=== PATIENT | female | born 1945 | race Caucasian/White ===

== ENCOUNTER 2018-01-21 18:02 | Inpatient (IN) ==
[2018-01-21 18:48] LABS: Microscopic, Urine URINE MICROSCOPIC (MICROSCOPIC)
[2018-01-21 18:53] LABS: Basophils % 0.1 % (0.1-2.0); Eosinophils # 0.1 K/mm3 (0.0-0.4); Eosinophils % 0.3 % (0.1-12.0); Hematocrit 38.9 % (37.0-47.0); Hemoglobin 12.9 g/dL (12.2-16.2); Lymphocytes # 0.7 K/mm3 (0.7-4.5); Lymphocytes % 3.8 % (10-50); Mean Corpuscular HGB Conc 33.1 g/dL (31.8-35.4); Mean Corpuscular Hemoglobin 28.9 pg (27.0-31.2); Mean Corpuscular Volume 87.5 fl (81-99); Mean Platelet Volume 8.2 fl (7.4-10.4); Monocytes # 0.8 K/mm3 (0.1-1.0); Neutrophils # 17.1 K/mm3 (1.8-7.8); Neutrophils % 91.8 % (37.0-80.0); Platelet Count 232 K/mm3 (142-424); Red Blood Count 4.45 M/mm3 (4.20-5.40); Red Cell Distribution Width 13.4 % (11.5-17.5); White Blood Count 18.7 K/mm3 (4.8-10.8)
--- NOTE | 2018-01-21 18:58 | Emergency Department Note ---
ED Disposition Clinical Impression: Weakness, Hypokalemia, Dehydration, Acute UTI (urinary tract infection) Disposition: Admitted as Observation Condition on Discharge: Fair - Critical Care Critical Care Time: No Attestation: On 01/21/18, the high probability of a clinically significant, sudden or life threatening deterioration of the following system(s) required my full and direct attention, intervention and personal management. The time I documented below is in addition to time spent performing reported procedures but includes the following listed in this critical care notation. Medical Decision Making - Medical Records Medical records reviewed: Yes: I reviewed the patient's medical records. MR Comment: Discussed case with hospitalist claim professional (Dr. Tellez). Patient admitted to her care for farther management and monitoring. Patient remained stable during her ED care. - Adalberto Inquiry Pt receiving controlled substance: No Adalberto was queried for this patient: No Vital Signs: 01/21/18 18:04 Temperature 98.1 F Temperature Source Oral Pulse Rate [Right Brachial] 83 Respiratory Rate 20 Blood Pressure [Left Arm] 113/66 Blood Pressure Mean [Left Arm] 81 Blood Pressure Source [Left Arm] Automatic Cuff Blood Pressure Position [Left Arm] Sitting 02 Sat by Pulse Oximetry 92 L Oxygen Delivery Method Room Air - Lab Data Lab results reviewed: Yes: I reviewed the patient's lab results. Lab Results 01/21/18 17:45: Urine Color Yellow, Urine Appearance Cloudy, Urine pH 6.0, Ur Specific [place] 1.010, Urine Protein 2+, Urine Glucose (UA) Negative, Urine Ketones 1+, Urine Blood 3+, Urine Nitrate Negative, Urine Bilirubin Negative, Urine Urobilinogen 0.2, Ur Leukocyte Esterase 2+ A, Urine RBC 3-5, Urine WBC 20- 50, Ur Squamous Epith Cells None, Urine Bacteria 1+ 01/21/18 17:45: WBC 18.7 H, RBC 4.45, Hgb 12.9, Hct 38.9, MCV 87.5, MCH 28.9, MCHC 33.1, RDW 13.4, Plt Count 232, MPV 8.2, Neut % (Auto) 91.8 H, Lymph % (Auto) 3.8 L, [place] % (Auto) 4.0, Eos % (Auto) 0.3, Baso % (Auto) 0.1, Neut # (Auto) 17.1 H, Lymph # (Auto) 0.7, [place] # (Auto) 0.8, Eos # (Auto) 0.1, Baso # (Auto) 0.0, Total Counted 100, Neutrophils % (Manual) 92 H, Lymphocytes % (Manual) 6 L, Monocytes % (Manual) 2, Platelet Estimate Normal, RBC Morphology Normal 01/21/18 17:45: Sodium 124 L, Potassium 2.5 L*, Chloride 85 L, Carbon Dioxide 28, Anion Gap 13.5, BUN 29 H, Creatinine 1.32 H, Estimated Creat Clear 44, Estimated GFR 40 L, Est GFR ( Amer) 48 L, Glucose 143 H, Calcium 8.8, Total Bilirubin 0.6, AST 49 H, ALT 36, Alkaline Phosphatase 86, Total Protein 7.6, Albumin 2.6 L, Globulin 5.0 H, Albumin/Globulin Ratio 0.5 L 01/21/18 19:05: Magnesium 2.0 01/21/18 19:07: Lactate 1.0 Result diagrams: 01/21/18 17:45 01/21/18 17:45 Orders (Tests/Meds): ED MEDICATIONS Generic Name Dose Route Start Last Admin Trade Name Freq PRN Reason Stop Dose Admin Ceftriaxone Sodium 2 gm/ 100 mls @ 200 mls/hr 01/21/18 19:30 01/21/18 19:46 Sodium Chloride IV 02/04/18 19:29 200 mls/hr Q24H TIMOTHY Administration Protocol Potassium Chloride/Water 100 mls @ 50 mls/hr 01/21/18 19:45 Potassium Chloride 20meq/100ml Ivpb IV 01/21/18 23:44 Q2H TIMOTYH Sodium Chloride 1,000 mls @ 999 mls/hr 01/21/18 20:00 01/21/18 19:46 Sod Chlor 0.9% 1000ml Bag IV 01/21/18 21:00 999 mls/hr .Q1H1M TIMOTHY Administration Sodium Chloride 1,000 mls @ 125 mls/hr 01/21/18 20:00 Sod Chlor 0.9% 1000ml Bag IV 02/20/18 19:59 .Q8H TIMOTHY Discontinued Medications Generic Name Dose Route Start Last Admin Trade Name Freq PRN Reason Stop Dose Admin Potassium Chloride 40 meq 01/21/18 19:13 01/21/18 19:31 Klor-Con 20meq Tablet PO 01/21/18 19:14 40 meq ONCE ONE Administration ORDERS Category Date Time Status Urinalysis and Microscopic Stat Lab 01/21/18 17:45 Ordered Blood Culture Stat Micro 01/21/18 19:50 Received Urine Culture Stat Micro 01/21/18 17:45 Received EKG Request [ECG Request by /Tabitha] Stat Y 01/21/18 19:11 Ordered - ECG Data Tracing #1 I reviewed this ECG and interpreted as documented below: Normal Sinus Rhythm: Yes General Adult HPI - General Chief complaint: Altered Mental Status Stated complaint: Confused, Abd pain Time Seen by Provider: 01/21/18 18:05 Mode of Arrival: Ambulatory Source of Information: Patient, Relative Limitations: No Limitations Description of Symptoms (Recalled from ER Triage Doc. by RN): c/o confusion. Has had uti x 2 weeks and didnt go to dr until and didnt get meds filled til thu and has only taken 2 doses - History of Present Illness HPI narrative: Patinent with recent diagnosis of UTI, started on antibiotic 2 days ago by her PCP, brought to the ED by her daughter of confusion at home that lasted for about 15 minutes and generalized weakness. Symptoms resolved by the time of ED presentation. Denies fever, chills, chest pain, sob, abdominal pain. Denies any other acute complains at this time. Onset (ago): hour(s) Relieving factors: none Exacerbating factors: none Associated symptoms: denies other symptoms Treatments prior to arrival: none - Related Data Home Medications Medication Instructions Recorded Confirmed Atenolol/Chlorthalidone 1 each PO DAILY 01/21/18 01/21/18 [Atenolol-Chlorthalidone 50-25] Budesonide [Budesonide EC] 3 mg PO DAILY 01/21/18 01/21/18 Calcium Carb, Citrate/Vit D3 1 each PO DAILY 01/21/18 01/21/18 [Citracal + D ER Tablet] Cholecalciferol (Vitamin D3) 1,000 unit PO BID 01/21/18 01/21/18 [Vitamin D3 1,000 Unit Cap] Nitrofurantoin Monohyd/M-Cryst 100 mg PO BID 01/21/18 01/21/18 [Nitrofurantoin [place]-Mcr 100 mg] Potassium Chloride [Klor-con 20 20 meq PO BID 01/21/18 01/21/18 mEq tablet] Pravastatin Sodium 80 mg PO DAILY 01/21/18 01/21/18 Allergies Allergy/AdvReac Type Severity Reaction Status Date / Time No Known Allergies Allergy Verified 01/21/18 18:13 [facility] History I have reviewed the patient's past medical history: Yes Medical History: Denies:: Cancer, Diabetes Mellitus Type 1, Diabetes Mellitus Type 2, MRSA Amputation: No - Social History Smoking Status: Current every day smoker Tobacco Type: cigarettes Alcohol Intake: never - Psychiatric History Expresses thoughts of harming self/others: None Suicide Plan Description: No Plan ROS Obtained: Yes All systems reviewed & no additional complaints Physical Exam - General General appearance: alert, in no apparent distress - Head Head exam: atraumatic, normocephalic, normal inspection - Eye Eye exam: Present: normal appearance, PERRL, EOMI - ENT ENT exam: Present: normal exam, normal oropharynx, mucous membranes moist, TM's normal bilaterally, normal external ear exam - Neck Neck exam: Present: normal inspection, full ROM, trachea midline. Absent: meningismus, lymphadenopathy - Chest Chest inspection: Present: normal inspection, symmetric chest wall rise. Absent: tenderness - Respiratory Respiratory exam: Present: normal lung sounds bilaterally. Absent: respiratory distress - Cardiovascular Cardiovascular exam: Present: regular rate, normal rhythm. Absent: JVD - Abdominal Exam Abdominal exam: Present: soft, normal bowel sounds. Absent: distention, tenderness, guarding - Extremities Exam Extremities exam: Present: normal inspection, full ROM, normal capillary refill. Absent: calf tenderness - Back Exam Back exam: Present: normal inspection. Absent: tenderness - Neurological Exam Neurological exam: Present: alert, oriented X3 - Psychiatric Psychiatric exam: Present: normal affect, normal mood - Skin Skin exam: Present: warm, dry, intact, normal color - Lymphatic Lymphatic Findings: no adenopathy
[2018-01-21 19:00] LABS: Appearance,Urine CLOUDY (Clear); Bilirubin,Urine Negative (Negative); Blood, Urine 3+ (Negative); Color,Urine YELLOW (Yellow); Glucose,Urine (UA) Negative (Negative); Ketones,Urine 1+ (Negative); Leukocyte Esterase,Urine 2+ (Negative); Protein,Urine 2+ (Negative); Urobilinogen,Urine 0.2 EU/dl (0.2)
[2018-01-21 19:03] LABS: Albumin Level 2.6 gm/dL (3.4-5.0); Albumin/Globulin Ratio 0.5 (1.1-1.8); Anion Gap 13.5 mEq/L (5-15); Bilirubin,Total 0.6 mg/dL (0.2-1.0); Calcium 8.8 mg/dL (8.5-10.1); Total Protein,Serum 7.6 gm/dL (6.4-8.2)
[2018-01-21 19:07] LABS: Potassium 2.5 mmoL/L (3.5-5.1)
[2018-01-21 19:26] LABS: Bacteria,Urine 1+ /lpf; WBC,Urine 20-50 #/hpf (0-3)
[2018-01-21 19:36] LABS: Lymphocytes % 6 % (10-50); Monocytes % 2 % (2-9); Neutrophils % 92 % (42-76); Total Cells Counted 100
[2018-01-21 19:37] LABS: RBC Morphology Normal
--- NOTE | 2018-01-22 07:34 | Pharmacy Consult Notes ---
[facility] Pharmacy VTE Monitoring - Patient Demographics Admission date: 01/21/18 Report Date: 01/22/18 Time: 07:33 Allergies/Adverse Reactions: Patient Allergies No Known Allergies Allergy (Verified 01/21/18 18:13) Height: 1.57 m Weight: 71.894 kg Patient Problems: Current Active Problems Acute UTI (urinary tract infection) (Acute) Weakness (Acute) Hypokalemia (Acute) Dehydration (Acute) - VTE Risk Labs: VTE Related Lab Results Hgb 12.9 g/dL (12.2-16.2) 01/21/18 17:45 Hct 38.9 % (37.0-47.0) 01/21/18 17:45 Plt Count 232 K/mm3 (142-424) 01/21/18 17:45 BUN 29 mg/dL (7-18) H 01/21/18 17:45 Creatinine 1.32 mg/dL (0.55-1.02) H 01/21/18 17:45 Estimated Creat Clear 44 mL/min (50-200) 01/21/18 17:45 Was VTE Risk Assessment Performed: Yes VTE Score: 3 VTE Risk Level: Low Risk Clinical Trial Participant: No - Prophylaxis VTE Prophylaxis Ordered?: Yes Types of VTE Prophylaxis: TEDS Knee High Location of Applied Device: Refused
--- NOTE | 2018-01-22 08:54 | History & Physical Report ---
*Admission Date: 01/21/18 <Monae Crowe 01/22/18 09:00> *Chief complaint: Weakness, Confusion, <Monae Crowe 01/22/18 09:00> *History of present illness: Ms. Londono is a 72-year-old female who had just recently seen her PCP, Dr. Delgado, for urinary tract infection. She was placed on antibiotics yesterday and later on in the day began getting confused and extremely weak. She states her family told her she needed to go to the emergency room and therefore brought her to the ER. Her white blood cell count was elevated, her potassium was low, and her renal functions were increased. She was admitted and started on IV abx. At this time she is feeling better. She states her confusion has improved. She is having some diarrhea but she has a history of Crohn's and has not had her medication since yesterday. <Monae Crowe 01/22/18 09:00> [facility] History Medical History: Reports:: Hyperlipidemia, Hypertension Denies:: Cancer, Diabetes Mellitus Type 1, Diabetes Mellitus Type 2, MRSA <Monae Crowe 01/22/18 09:00> Comment: Crohn's Disease <Monae Crowe 01/22/18 09:00> Other Surgeries: Yes: Hysterectomy-Total <Monae Crowe 01/22/18 09:00> Amputation: No <Monae Crowe 01/22/18 09:00> - *Social History Educational Level: Completed High School <Monae Crowe 01/22/18 09:00> Smoking Status: Current every day smoker <Monae Crowe 01/22/18 09:00> Tobacco Type: cigarettes <Monae Crowe 01/22/18 09:00> # Packs/Day (cigarettes): 1 <Monae Crowe 01/22/18 09:00> Alcohol Intake: never <Monae Crowe 01/22/18 09:00> Occupational Status: retired <Monae Crowe 01/22/18 09:00> Housing: other <Monae Crowe 01/22/18 09:00> Household Members: spouse <Monae Crowe 01/22/18 09:00> - Psychiatric History Expresses thoughts of harming self/others: None <Monae Crowe - 01/22/18 09:00> Suicide Plan Description: No Plan <Monae Crowe 01/22/18 09:00> *Family Hx:: Cancer, Diabetes, Heart Attack, Hyperlipidemia, Hypertension <Monae Crowe 01/22/18 09:00> Review of Systems - Constitutional Reports fever(s), Reports malaise, Reports weakness <Monae Crowe 01/22/18 09:00> - Eyes Denies blurry vision, Denies double vision <Monae Crowe 01/22/18 09:00> - ENT Reports nasal congestion, Denies sore throat <Monae Crowe 01/22/18 09:00> - *Cardiovascular Denies chest pain, Denies rapid, pounding, or irregular heartbeat <Monae Crowe 01/22/18 09:00> - *Respiratory Denies cough, Denies shortness of breath <Monae Crowe 01/22/18 09:00> - *Gastrointestinal Reports abdominal pain, Reports loose stools, Denies nausea, Denies vomiting <Monae Crowe 01/22/18 09:00> - *Genitourinary Reports painful urination, Reports urinary urgency <Monae Crowe 01/22/18 09:00> - *Musculoskeletal Denies joint pain, Denies body aches <Monae Crowe 01/22/18 09:00> - *Neurologic Reports weakness, Denies headache(s), Denies dizziness <Monae Crowe 01/22/18 09:00> Meds Home Medications Medication Instructions Recorded Confirmed Type Atenolol/Chlorthalidone 1 each PO DAILY 01/21/18 01/22/18 History [Atenolol-Chlorthalidone 50-25] Budesonide [Budesonide EC] 3 mg PO DAILY 01/21/18 01/22/18 History Calcium Carb, Citrate/Vit D3 1 each PO DAILY 01/21/18 01/22/18 History [Citracal + D ER Tablet] Cholecalciferol (Vitamin D3) 1,000 unit PO BID 01/21/18 01/21/18 History [Vitamin D3 1,000 Unit Cap] Nitrofurantoin Monohyd/M-Cryst 100 mg PO BID 01/21/18 01/21/18 History [Nitrofurantoin [place]-Mcr 100 mg] Pravastatin Sodium 80 mg PO DAILY 01/21/18 01/21/18 History Potassium Chloride [Klor-Con 10mEq 20 meq PO DAILY 01/22/18 01/22/18 History tab] <Mirna Tellez - 01/22/18 11:13> Allergies Allergy/AdvReac Type Severity Reaction Status Date / Time No Known Allergies Allergy Verified 01/21/18 18:13 <Mirna Tellez - 01/22/18 11:13> Exam Vital signs and Labs for Last 24 Hours: Temp Pulse Resp BP Pulse Ox 100.6 F H 76 17 124/53 L 92 L 01/22/18 07:57 01/22/18 07:57 01/22/18 07:57 01/22/18 07:57 01/22/18 07:57 Laboratory Results - last 24 hr 01/21/18 17:45: Urine Color Yellow, Urine Appearance Cloudy, Urine pH 6.0, Ur Specific [place] 1.010, Urine Protein 2+, Urine Glucose (UA) Negative, Urine Ketones 1+, Urine Blood 3+, Urine Nitrate Negative, Urine Bilirubin Negative, Urine Urobilinogen 0.2, Ur Leukocyte Esterase 2+ A, Urine RBC 3-5, Urine WBC 20- 50, Ur Squamous Epith Cells None, Urine Bacteria 1+ 01/21/18 17:45: WBC 18.7 H, RBC 4.45, Hgb 12.9, Hct 38.9, MCV 87.5, MCH 28.9, MCHC 33.1, RDW 13.4, Plt Count 232, MPV 8.2, Neut % (Auto) 91.8 H, Lymph % (Auto) 3.8 L, [place] % (Auto) 4.0, Eos % (Auto) 0.3, Baso % (Auto) 0.1, Neut # (Auto) 17.1 H, Lymph # (Auto) 0.7, [place] # (Auto) 0.8, Eos # (Auto) 0.1, Baso # (Auto) 0.0, Total Counted 100, Neutrophils % (Manual) 92 H, Lymphocytes % (Manual) 6 L, Monocytes % (Manual) 2, Platelet Estimate Normal, RBC Morphology Normal 01/21/18 17:45: Sodium 124 L, Potassium 2.5 L*, Chloride 85 L, Carbon Dioxide 28, Anion Gap 13.5, BUN 29 H, Creatinine 1.32 H, Estimated Creat Clear 44, Estimated GFR 40 L, Est GFR ( Amer) 48 L, Glucose 143 H, Calcium 8.8, Total Bilirubin 0.6, AST 49 H, ALT 36, Alkaline Phosphatase 86, Total Protein 7.6, Albumin 2.6 L, Globulin 5.0 H, Albumin/Globulin Ratio 0.5 L 01/21/18 19:05: Magnesium 2.0 01/21/18 19:07: Lactate 1.0 <Sound,Mirna - 01/22/18 11:13> Temp Pulse Resp BP Pulse Ox 100.6 F H 76 17 124/53 L 92 L 01/22/18 07:57 01/22/18 07:57 01/22/18 07:57 01/22/18 07:57 01/22/18 07:57 Laboratory Results - last 24 hr 01/21/18 17:45: Urine Color Yellow, Urine Appearance Cloudy, Urine pH 6.0, Ur Specific [place] 1.010, Urine Protein 2+, Urine Glucose (UA) Negative, Urine Ketones 1+, Urine Blood 3+, Urine Nitrate Negative, Urine Bilirubin Negative, Urine Urobilinogen 0.2, Ur Leukocyte Esterase 2+ A, Urine RBC 3-5, Urine WBC 20- 50, Ur Squamous Epith Cells None, Urine Bacteria 1+ 01/21/18 17:45: WBC 18.7 H, RBC 4.45, Hgb 12.9, Hct 38.9, MCV 87.5, MCH 28.9, MCHC 33.1, RDW 13.4, Plt Count 232, MPV 8.2, Neut % (Auto) 91.8 H, Lymph % (Auto) 3.8 L, [place] % (Auto) 4.0, Eos % (Auto) 0.3, Baso % (Auto) 0.1, Neut # (Auto) 17.1 H, Lymph # (Auto) 0.7, [place] # (Auto) 0.8, Eos # (Auto) 0.1, Baso # (Auto) 0.0, Total Counted 100, Neutrophils % (Manual) 92 H, Lymphocytes % (Manual) 6 L, Monocytes % (Manual) 2, Platelet Estimate Normal, RBC Morphology Normal 01/21/18 17:45: Sodium 124 L, Potassium 2.5 L*, Chloride 85 L, Carbon Dioxide 28, Anion Gap 13.5, BUN 29 H, Creatinine 1.32 H, Estimated Creat Clear 44, Estimated GFR 40 L, Est GFR ( Amer) 48 L, Glucose 143 H, Calcium 8.8, Total Bilirubin 0.6, AST 49 H, ALT 36, Alkaline Phosphatase 86, Total Protein 7.6, Albumin 2.6 L, Globulin 5.0 H, Albumin/Globulin Ratio 0.5 L 01/21/18 19:05: Magnesium 2.0 01/21/18 19:07: Lactate 1.0 <Monae Crowe - 01/22/18 09:00> I & O for Last 24 hours: Intake & Output 01/19/18 01/20/18 01/21/18 01/22/18 11:59 11:59 11:59 11:59 Intake Total 1650 / 1650 Output Total 720 / 720 Balance 930 / 930 Weight 158 lb 7.986 oz <RosalindaMirna - 01/22/18 11:13> Intake & Output 01/19/18 01/20/18 01/21/18 01/22/18 11:59 11:59 11:59 11:59 Intake Total 1650 / 1650 Output Total 720 / 720 Balance 930 / 930 Weight 158 lb 7.986 oz <Monae Crowe - 01/22/18 09:00> Microbiology Reports for the Last 24 Hours: Microbiology 01/21/18 17:45 Urine,Clean Catch Urine Culture - Preliminary Gram Negative Rods <RosalindaMirna - 01/22/18 11:13> Microbiology 01/21/18 17:45 Urine,Clean Catch Urine Culture - Preliminary Gram Negative Rods <Monae Crowe - 01/22/18 09:00> - Constitutional no acute distress <Monae Crowe - 01/22/18 09:00> - *Routine HEENT Exam Head: Present: normocephalic <Monae Crowe - 01/22/18 09:00> Eye: Present: EOMI, PERRL <Monae Crowe - 01/22/18 09:00> ENT: Present: mucous membranes dry <[facility] 01/22/18 09:00> - *Routine Neck Exam Present: supple. Absent: lymphadenopathy <[facility] 01/22/18 09:00> - *Routine Respiratory Exam Present: CTA bilaterally <[facility] 01/22/18 09:00> - *Routine Cardiovascular Exam Present: RRR <[facility] 01/22/18 09:00> - *Routine Abdominal Exam Present: soft, normoactive bowel sounds, tenderness (diffuse) <[facility] 01/22/18 09:00> - *Routine Extremities Exam Absent: cyanosis, clubbing, edema <[facility] 01/22/18 09:00> - *Routine Skin Exam Present: warm. Absent: rash <[facility] 01/22/18 09:00> - *Routine Neurological Exam Present: alert, oriented X3 <[facility] 01/22/18 09:00> Assessment and Plan (1) Acute UTI (urinary tract infection) Current visit: Yes Status: Acute Category: Medical Code(s): N39.0 - Urinary tract infection, site not specified (2) Weakness Current visit: Yes Status: Acute Category: Medical Code(s): R53.1 - Weakness (3) Hypokalemia Current visit: Yes Status: Acute Category: Medical Code(s): E87.6 - Hypokalemia (4) Dehydration Current visit: Yes Status: Acute Category: Medical Code(s): E86.0 - Dehydration (5) Crohn's disease Current visit: Yes Status: Chronic Category: Medical Code(s): K50.90 - Crohn's disease, unspecified, without complications (6) Hypertension Current visit: Yes Status: Chronic Category: Medical Code(s): I10 - Essential (primary) hypertension (7) Hyperlipidemia Current visit: Yes Status: Chronic Category: Medical Code(s): E78.5 - Hyperlipidemia, unspecified [facility] 01/22/[facility] 08:51> (1) Acute UTI (urinary tract infection) Current visit: Yes Status: Acute Category: Medical Code(s): N39.0 - Urinary tract infection, site not specified (2) Weakness Current visit: Yes Status: Acute Category: Medical Code(s): R53.1 - Weakness (3) Hypokalemia Current visit: Yes Status: Acute Category: Medical Code(s): E87.6 - Hypokalemia (4) Dehydration Current visit: Yes Status: Acute Category: Medical Code(s): E86.0 - Dehydration (5) Crohn's disease Current visit: Yes Status: Chronic Category: Medical Code(s): K50.90 - Crohn's disease, unspecified, without complications (6) Hypertension Current visit: Yes Status: Chronic Category: Medical Code(s): I10 - Essential (primary) hypertension (7) Hyperlipidemia Current visit: Yes Status: Chronic Category: Medical Code(s): E78.5 - Hyperlipidemia, unspecified <Mirna eTllez - 01/22/18 11:13> - Assessment and plan all Dx Assessment and Plan for all problems:: continue IV abx and await urine culture. refrain from macrobid for now. <Mirna Tellez - 01/22/18 11:13> Patient has been started on IV antibiotics, IV fluids, and potassium. Will repeat labs this morning. Will await urine culture results. <Monae Crowe - 01/22/18 09:00>
[2018-01-22 11:21] LABS: Basophils % 0.1 % (0.1-2.0); Mean Corpuscular Volume 88.6 fl (81-99); Monocytes # 0.6 K/mm3 (0.1-1.0); Monocytes % 4.4 % (1.7-9.3); Red Cell Distribution Width 13.6 % (11.5-17.5)
[2018-01-22 11:32] LABS: Eosinophils % 0.1 % (0.1-12.0); Hematocrit 34.7 % (37.0-47.0); Lymphocytes # 1.4 K/mm3 (0.7-4.5); Lymphocytes % 9.8 % (10-50); Mean Corpuscular HGB Conc 32.6 g/dL (31.8-35.4); Mean Corpuscular Hemoglobin 28.9 pg (27.0-31.2); Mean Platelet Volume 8.4 fl (7.4-10.4); Neutrophils # 12.3 K/mm3 (1.8-7.8); Neutrophils % 85.5 % (37.0-80.0); Platelet Count 223 K/mm3 (142-424); Red Blood Count 3.91 M/mm3 (4.20-5.40); White Blood Count 14.4 K/mm3 (4.8-10.8)
[2018-01-22 11:36] LABS: Hemoglobin 11.3 g/dL (12.2-16.2)
[2018-01-22 14:04] LABS: Lymphocytes % 11 % (10-50); Monocytes % 2 % (2-9); Neutrophils % 87 % (42-76); Total Cells Counted 100
[2018-01-22 14:05] LABS: RBC Morphology Normal
[2018-01-23 06:46] LABS: Basophils % 0.1 % (0.1-2.0); Eosinophils # 0.1 K/mm3 (0.0-0.4); Eosinophils % 0.4 % (0.1-12.0); Hematocrit 34.1 % (37.0-47.0); Lymphocytes # 1.4 K/mm3 (0.7-4.5); Mean Corpuscular HGB Conc 32.2 g/dL (31.8-35.4); Mean Corpuscular Hemoglobin 28.3 pg (27.0-31.2); Mean Corpuscular Volume 87.9 fl (81-99); Mean Platelet Volume 8.9 fl (7.4-10.4); Monocytes # 0.6 K/mm3 (0.1-1.0); Monocytes % 5.3 % (1.7-9.3); Neutrophils # 9.6 K/mm3 (1.8-7.8); Neutrophils % 82.1 % (37.0-80.0); Platelet Count 216 K/mm3 (142-424); Red Blood Count 3.88 M/mm3 (4.20-5.40); Red Cell Distribution Width 13.7 % (11.5-17.5); White Blood Count 11.6 K/mm3 (4.8-10.8)
[2018-01-23 06:58] LABS: Albumin Level 1.9 gm/dL (3.4-5.0); Albumin/Globulin Ratio 0.5 (1.1-1.8); Anion Gap 9.3 mEq/L (5-15); Bilirubin,Total 0.3 mg/dL (0.2-1.0); Calcium 8.2 mg/dL (8.5-10.1); Globulin 4.1 gm/dl (1.3-3.2); Potassium 3.3 mmoL/L (3.5-5.1)
--- NOTE | 2018-01-23 08:27 | Progress Note ---
Internal Medicine - PN: Subj *Date: 01/23/18 *Time: 08:27 Exam Vital signs and Labs for Last 24 Hours: Temp Pulse Resp BP Pulse Ox 98.3 F 65 16 131/81 92 L 01/23/18 07:29 01/23/18 07:29 01/23/18 07:29 01/23/18 07:29 01/23/18 07:29 Laboratory Results - last 24 hr 01/22/18 11:00: WBC 14.4 H, RBC 3.91 L, Hgb 11.3 L D, Hct 34.7 L, MCV 88.6, MCH 28.9, MCHC 32.6, RDW 13.6, Plt Count 223, MPV 8.4, Neut % (Auto) 85.5 H, Lymph % (Auto) 9.8 L, [place] % (Auto) 4.4, Eos % (Auto) 0.1, Baso % (Auto) 0.1, Neut # (Auto) 12.3 H, Lymph # (Auto) 1.4, [place] # (Auto) 0.6, Eos # (Auto) 0.0, Baso # (Auto) 0.0, Total Counted 100, Neutrophils % (Manual) 87 H, Lymphocytes % (Manual) 11, Monocytes % (Manual) 2, Platelet Estimate Normal, RBC Morphology Normal 01/23/18 06:36: WBC 11.6 H, RBC 3.88 L, Hgb 11.0 L, Hct 34.1 L, MCV 87.9, MCH 28.3, MCHC 32.2, RDW 13.7, Plt Count 216, MPV 8.9, Neut % (Auto) 82.1 H, Lymph % (Auto) 12.0, [place] % (Auto) 5.3, Eos % (Auto) 0.4, Baso % (Auto) 0.1, Neut # (Auto) 9.6 H, Lymph # (Auto) 1.4, [place] # (Auto) 0.6, Eos # (Auto) 0.1, Baso # (Auto) 0.0 01/23/18 06:36: Sodium 134 L, Potassium 3.3 L D, Chloride 99, Carbon Dioxide 29, Anion Gap 9.3, BUN 16 D, Creatinine 0.92 D, Estimated Creat Clear 58, Estimated GFR 60, Est GFR ( Amer) 73 D, Glucose 101, Calcium 8.2 L, Total Bilirubin 0.3, AST 51 H, ALT 35, Alkaline Phosphatase 66, Total Protein 6.0 L, Albumin 1.9 L, Globulin 4.1 H, Albumin/Globulin Ratio 0.5 L I & O for Last 24 hours: Intake & Output 01/20/18 01/21/18 01/22/18 01/23/18 11:59 11:59 11:59 11:59 Intake Total 1650 / 1650 3055 / 3055 Output Total 720 / 720 650 / 650 Balance 930 / 930 2405 / 2405 Weight 158 lb 7.986 oz Microbiology Reports for the Last 24 Hours: Microbiology 01/21/18 19:50 Blood Blood Culture - Preliminary Gram Negative Rods 01/21/18 17:45 Urine,Clean Catch Urine Culture - Final Escherichia coli Assessment and Plan (1) Acute UTI (urinary tract infection) Current visit: Yes Status: Acute Category: Medical Code(s): N39.0 - Urinary tract infection, site not specified (2) Weakness Current visit: Yes Status: Acute Category: Medical Code(s): R53.1 - Weakness (3) Hypokalemia Current visit: Yes Status: Acute Category: Medical Code(s): E87.6 - Hypokalemia (4) Dehydration Current visit: Yes Status: Acute Category: Medical Code(s): E86.0 - Dehydration (5) Crohn's disease Current visit: Yes Status: Chronic Category: Medical Code(s): K50.90 - Crohn's disease, unspecified, without complications (6) Hypertension Current visit: Yes Status: Chronic Category: Medical Code(s): I10 - Essential (primary) hypertension (7) Hyperlipidemia Current visit: Yes Status: Chronic Category: Medical Code(s): E78.5 - Hyperlipidemia, unspecified
--- NOTE | 2018-01-23 08:51 | Progress Note ---
Internal Medicine - PN: Subj *Date: 01/23/18 *Time: 08:48 Interval history: Feeling better. Rested well last night. No c/o abdominal pain or dysuria. Exam Vital signs and Labs for Last 24 Hours: Temp Pulse Resp BP Pulse Ox 98.3 F 65 16 131/81 92 L 01/23/18 07:29 01/23/18 07:29 01/23/18 07:29 01/23/18 07:29 01/23/18 07:29 Laboratory Results - last 24 hr 01/22/18 11:00: WBC 14.4 H, RBC 3.91 L, Hgb 11.3 L D, Hct 34.7 L, MCV 88.6, MCH 28.9, MCHC 32.6, RDW 13.6, Plt Count 223, MPV 8.4, Neut % (Auto) 85.5 H, Lymph % (Auto) 9.8 L, [place] % (Auto) 4.4, Eos % (Auto) 0.1, Baso % (Auto) 0.1, Neut # (Auto) 12.3 H, Lymph # (Auto) 1.4, [place] # (Auto) 0.6, Eos # (Auto) 0.0, Baso # (Auto) 0.0, Total Counted 100, Neutrophils % (Manual) 87 H, Lymphocytes % (Manual) 11, Monocytes % (Manual) 2, Platelet Estimate Normal, RBC Morphology Normal 01/23/18 06:36: WBC 11.6 H, RBC 3.88 L, Hgb 11.0 L, Hct 34.1 L, MCV 87.9, MCH 28.3, MCHC 32.2, RDW 13.7, Plt Count 216, MPV 8.9, Neut % (Auto) 82.1 H, Lymph % (Auto) 12.0, [place] % (Auto) 5.3, Eos % (Auto) 0.4, Baso % (Auto) 0.1, Neut # (Auto) 9.6 H, Lymph # (Auto) 1.4, [place] # (Auto) 0.6, Eos # (Auto) 0.1, Baso # (Auto) 0.0 01/23/18 06:36: Sodium 134 L, Potassium 3.3 L D, Chloride 99, Carbon Dioxide 29, Anion Gap 9.3, BUN 16 D, Creatinine 0.92 D, Estimated Creat Clear 58, Estimated GFR 60, Est GFR ( Amer) 73 D, Glucose 101, Calcium 8.2 L, Total Bilirubin 0.3, AST 51 H, ALT 35, Alkaline Phosphatase 66, Total Protein 6.0 L, Albumin 1.9 L, Globulin 4.1 H, Albumin/Globulin Ratio 0.5 L I & O for Last 24 hours: Intake & Output 01/20/18 01/21/18 01/22/18 01/23/18 11:59 11:59 11:59 11:59 Intake Total 1650 / 1650 3055 / 3055 Output Total 720 / 720 650 / 650 Balance 930 / 930 2405 / 2405 Weight 158 lb 7.986 oz Microbiology Reports for the Last 24 Hours: Microbiology 01/21/18 19:50 Blood Blood Culture - Preliminary Gram Negative Rods 01/21/18 17:45 Urine,Clean Catch Urine Culture - Final Escherichia coli - Constitutional Comments: awakened from sleep. NAD - *Routine Respiratory Exam Comments: clear anteriorly - *Routine Cardiovascular Exam Present: RRR - *Routine Abdominal Exam Present: soft. Absent: tenderness Assessment and Plan (1) Acute UTI (urinary tract infection) Current visit: Yes Status: Acute Category: Medical Code(s): N39.0 - Urinary tract infection, site not specified (2) Bacteremia Current visit: Yes Status: Acute Category: Medical Code(s): R78.81 - Bacteremia (3) Weakness Current visit: Yes Status: Acute Category: Medical Code(s): R53.1 - Weakness (4) Hypokalemia Current visit: Yes Status: Acute Category: Medical Code(s): E87.6 - Hypokalemia (5) Dehydration Current visit: Yes Status: Acute Category: Medical Code(s): E86.0 - Dehydration (6) Crohn's disease Current visit: Yes Status: Chronic Category: Medical Code(s): K50.90 - Crohn's disease, unspecified, without complications (7) Hypertension Current visit: Yes Status: Chronic Category: Medical Code(s): I10 - Essential (primary) hypertension (8) Hyperlipidemia Current visit: Yes Status: Chronic Category: Medical Code(s): E78.5 - Hyperlipidemia, unspecified - Assessment and plan all Dx Assessment and Plan for all problems:: Clinically improving. WBC decreasing and K+ normalizing. Blood and urine cultures growing E.coli sensitive to Levaquin. Will continue current treatment and d/c IVF
[2018-01-24 07:19] LABS: Basophils % 0.3 % (0.1-2.0); Eosinophils # 0.1 K/mm3 (0.0-0.4); Eosinophils % 0.8 % (0.1-12.0); Hematocrit 33.4 % (37.0-47.0); Hemoglobin 10.9 g/dL (12.2-16.2); Lymphocytes # 1.7 K/mm3 (0.7-4.5); Lymphocytes % 15.7 % (10-50); Mean Corpuscular HGB Conc 32.7 g/dL (31.8-35.4); Mean Corpuscular Hemoglobin 28.7 pg (27.0-31.2); Mean Platelet Volume 7.8 fl (7.4-10.4); Monocytes # 0.7 K/mm3 (0.1-1.0); Monocytes % 6.2 % (1.7-9.3); Neutrophils # 8.5 K/mm3 (1.8-7.8); Platelet Count 244 K/mm3 (142-424); Red Cell Distribution Width 13.7 % (11.5-17.5)
[2018-01-24 07:29] LABS: Anion Gap 9.2 mEq/L (5-15); Calcium 8.4 mg/dL (8.5-10.1); Potassium 3.2 mmoL/L (3.5-5.1)
--- NOTE | 2018-01-24 08:03 | Progress Note ---
Internal Medicine - PN: Subj Interval history: No new complaints. She rested well last night. Denies dysuria or abdominal pain. Appetite is good. She is eager to go home. Exam Vital signs and Labs for Last 24 Hours: Temp Pulse Resp BP Pulse Ox 98.2 F 63 20 151/75 H 95 01/24/18 07:25 01/24/18 07:25 01/24/18 07:25 01/24/18 07:25 01/24/18 07:25 Laboratory Results - last 24 hr 01/22/18 13:00: Stl Aeromonas (PCR) Not detected, Stl C. cayetanensis PCR Not detected, Stool Rotavirus (PCR) Not detected, Stl Adenov F 40/41 PCR Not detected, Stool Astrovirus (PCR) Not detected, Stool Campylobacter PCR Not detected, Stl C.difficile Tox PCR Not detected, Stool Cryptosporidium PCR Not detected, Stl E.coli Shiga Tox PCR Not detected, Stool E coli O157 PCR Not detected, Stl Enterotoxigenic E PCR Not detected, Stool EPEC (PCR) Not detected, Stool EAEC (PCR) Not detected, Stl E. histolytica PCR Not detected, Stool Giardia Lamblia PCR Not detected, Stool Salmonella PCR Not detected, Stool Sapovirus (PCR) Not detected, Stl P. shigelloides PCR Not detected, Stl Shigella/EIEC PCR Not detected, St Y.enterocolitica PCR Not detected, Stool Vibrio (PCR) Not detected, Stl Vibrio cholerae PCR Not detected, Stl Norovirus GI/GII PCR Not detected 01/24/18 07:07: WBC 11.0 H, RBC 3.80 L, Hgb 10.9 L, Hct 33.4 L, MCV 88.0, MCH 28.7, MCHC 32.7, RDW 13.7, Plt Count 244, MPV 7.8, Neut % (Auto) 77.0, Lymph % (Auto) 15.7, [place] % (Auto) 6.2, Eos % (Auto) 0.8, Baso % (Auto) 0.3, Neut # (Auto) 8.5 H, Lymph # (Auto) 1.7, [place] # (Auto) 0.7, Eos # (Auto) 0.1, Baso # (Auto) 0.0 01/24/18 07:07: Sodium 136, Potassium 3.2 L, Chloride 102, Carbon Dioxide 28, Anion Gap 9.2, BUN 12, Creatinine 0.87, Estimated Creat Clear 58, Estimated GFR 64, Est GFR ( Amer) 77, Glucose 98, Calcium 8.4 L I & O for Last 24 hours: Intake & Output 01/21/18 01/22/18 01/23/18 01/24/18 11:59 11:59 11:59 11:59 Intake Total 1650 / 1650 3205 / 3205 960 / 960 Output Total 720 / 720 650 / 650 750 / 750 Balance 930 / 930 2555 / 2555 210 / 210 Weight 158 lb 7.986 oz Microbiology Reports for the Last 24 Hours: Microbiology 01/21/18 19:50 Blood Blood Culture - Preliminary Escherichia coli 01/21/18 19:07 Blood Blood Culture - Preliminary NO GROWTH AFTER 48 HOURS 01/21/18 17:45 Urine,Clean Catch Urine Culture - Final Escherichia coli Narrative: She is alert and oriented and appears in no distress. Abdomen soft and nondistended with no unusual masses or tenderness. Assessment and Plan (1) Acute UTI (urinary tract infection) Current visit: Yes Status: Acute Category: Medical Code(s): N39.0 - Urinary tract infection, site not specified (2) Bacteremia Current visit: Yes Status: Acute Category: Medical Code(s): R78.81 - Bacteremia (3) Weakness Current visit: Yes Status: Acute Category: Medical Code(s): R53.1 - Weakness (4) Hypokalemia Current visit: Yes Status: Acute Category: Medical Code(s): E87.6 - Hypokalemia (5) Dehydration Current visit: Yes Status: Acute Category: Medical Code(s): E86.0 - Dehydration (6) Crohn's disease Current visit: Yes Status: Chronic Category: Medical Code(s): K50.90 - Crohn's disease, unspecified, without complications (7) Hypertension Current visit: Yes Status: Chronic Category: Medical Code(s): I10 - Essential (primary) hypertension (8) Hyperlipidemia Current visit: Yes Status: Chronic Category: Medical Code(s): E78.5 - Hyperlipidemia, unspecified - Assessment and plan all Dx Assessment and Plan for all problems:: Blood and urine cultures are growing E. coli sensitive to the Levaquin. She has responded nicely. Leukocytosis is resolving. She is afebrile. She is stable to be discharged home and followed up with her family physician, Dr. Delgado, in [place].
--- NOTE | 2018-01-25 16:37 | Discharge Summary ---
General - General Admission date:: 01/21/18 <Jonathan Zarate - 01/26/18 08:11> 01/21/18 <Monae Crowe - 01/25/18 16:37> Discharge date: 01/24/18 <Monae Crowe - 01/25/18 16:37> HPI HPI: Ms. Londono is a 72-year-old female who had just recently seen her PCP, Dr. Delgado, for urinary tract infection. She was placed on antibiotics yesterday and later on in the day began getting confused and extremely weak. She states her family told her she needed to go to the emergency room and therefore brought her to the ER. Her white blood cell count was elevated, her potassium was low, and her renal functions were increased. She was admitted and started on IV abx. At this time she is feeling better. She states her confusion has improved. She is having some diarrhea but she has a history of Crohn's and has not had her medication since yesterday. <Monae Crowe - 01/25/18 16:37> Hospital Course Hospital Course: The patient was started on IV abx, IVF's and potassium. Blood and urine cultures grew E. Coli and it was sensitive to levaquin. Her WBC and potassium improved. Her symptoms resolved. She was stable to be discharged home on continued levaquin and will f/u with her PCP. <Monae Crowe - 01/25/18 16:37> Objective Vital signs: Temp Pulse Resp BP Pulse Ox 98.2 F 63 20 151/75 H 95 01/24/18 07:25 01/24/18 07:25 01/24/18 07:25 01/24/18 07:25 01/24/18 08:38 <Jonathan Zarate - 01/26/18 08:11> Temp Pulse Resp BP Pulse Ox 98.2 F 63 20 151/75 H 95 01/24/18 07:25 01/24/18 07:25 01/24/18 07:25 01/24/18 07:25 01/24/18 08:38 <Monae Crowe - 01/25/18 16:37> Narrative: - Constitutional no acute distress - *Routine HEENT Exam Head: Present: normocephalic Eye: Present: EOMI, PERRL ENT: Present: mucous membranes dry - *Routine Neck Exam Present: supple. Absent: lymphadenopathy - *Routine Respiratory Exam Present: CTA bilaterally - *Routine Cardiovascular Exam Present: RRR - *Routine Abdominal Exam Present: soft, normoactive bowel sounds, tenderness (diffuse) - *Routine Extremities Exam Absent: cyanosis, clubbing, edema - *Routine Skin Exam Present: warm. Absent: rash - *Routine Neurological Exam Present: alert, oriented X3 <Monae Crowe 01/25/18 16:37> Results Labs on day of discharge: Preliminary micro results at discharge 01/21/18 19:50 Blood Culture - Preliminary Blood Escherichia coli 01/21/18 19:07 Blood Culture - Preliminary Blood NO GROWTH AFTER 48 HOURS <Jonathan Zarate 01/26/18 08:11> Preliminary micro results at discharge 01/21/18 19:50 Blood Culture - Preliminary Blood Escherichia coli 01/21/18 19:07 Blood Culture - Preliminary Blood NO GROWTH AFTER 48 HOURS <Monae Crowe 01/25/18 16:37> DS: Diagnosis - Discharge Diagnosis (1) Acute UTI (urinary tract infection) Status: Acute (2) Bacteremia Status: Acute (3) Weakness Status: Acute (4) Hypokalemia Status: Acute (5) Dehydration Status: Acute (6) Crohn's disease Status: Chronic (7) Hypertension Status: Chronic (8) Hyperlipidemia Status: Chronic <Monae Crowe 01/25/18 16:34> (1) Acute UTI (urinary tract infection) Status: Acute (2) Bacteremia Status: Acute (3) Weakness Status: Acute (4) Hypokalemia Status: Acute (5) Dehydration Status: Acute (6) Crohn's disease Status: Chronic (7) Hypertension Status: Chronic (8) Hyperlipidemia Status: Chronic <Jonathan Zarate 01/26/18 08:11> Discharge Plan - Patient Discharge Instructions ACTIVITY: Continue current activity <Monae Crowe 01/25/18 16:37> DIET: continue same diet <Monae Crowe 01/25/18 16:37> Patient Instructions: DI for Urinary Tract Infection (UTI) <Jonathan Zarate 01/26/18 08:11> Forms: <Jonathan Zarate 01/26/18 08:11> - Follow up Plan Follow up with: Monica Delgado [Primary Care Provider] - 02/01/18 <Jonathan Palmer - 01/26/18 08:11> Disposition: Home, Self-Care <Jonathan Zarate - 01/26/18 08:11> Home Medications: Home Medications Medication Instructions Recorded Confirmed Type RX: Atenolol/Chlorthalidone 1 each PO DAILY 01/21/18 01/22/18 History [Atenolol-Chlorthalidone 50-25] RX: Budesonide [Budesonide EC] 3 mg PO DAILY 01/21/18 01/22/18 History RX: Calcium Carb, Citrate/Vit D3 1 each PO DAILY 01/21/18 01/22/18 History [Citracal + D ER Tablet] RX: Cholecalciferol (Vitamin D3) 1,000 unit PO BID 01/21/18 01/21/18 History [Vitamin D3 1,000 Unit Cap] RX: Pravastatin Sodium 80 mg PO DAILY 01/21/18 01/21/18 History RX: Potassium Chloride [Klor-Con 20 meq PO DAILY 01/22/18 01/22/18 History 10mEq tab] <Jonathan Zarate - 01/26/18 08:11> Prescriptions/Medication Reconciliation: New levoFLOXacin [Levaquin 750mg tablet] 750 mg PO DAILY #7 tab RX: Potassium Chloride [K-Tab ER 20 mEq] 20 meq PO DAILY #30 tab Continue RX: Calcium Carb, Citrate/Vit D3 [Citracal + D ER Tablet] 1 each PO DAILY RX: Budesonide [Budesonide EC] 3 mg PO DAILY RX: Atenolol/Chlorthalidone [Atenolol-Chlorthalidone 50-25] 1 each PO DAILY RX: Pravastatin Sodium 80 mg PO DAILY RX: Cholecalciferol (Vitamin D3) [Vitamin D3 1,000 Unit Cap] 1,000 unit PO BID RX: Potassium Chloride [Klor-Con 10mEq tab] 20 meq PO DAILY Discontinued Nitrofurantoin Monohyd/M-Cryst [Nitrofurantoin [place]-Mcr 100 mg] 100 mg PO BID <Jonathan Zarate - 01/26/18 08:11> - Additional Information Additional Information: Concur with plan for discharge as outlined above. <Jonathan Zarate - 01/26/18 08:11>
--- NOTE | 2018-01-25 16:44 | Discharge Summary ---
General - General Admission date:: 01/21/18 Discharge date: 12/25/17 HPI HPI: Ms. Londono is a 72-year-old female who had just recently seen her PCP, Dr. Delgado, for urinary tract infection. She was placed on antibiotics and later on in the day began getting confused and extremely weak. She stated her family told her she needed to go to the emergency room. She thus presented to the ER. Her white blood cell count was elevated; her potassium was low; and her renal functions were increased. She was admitted and started on IV abx. At the time of exam she was feeling better. She stated her confusion had improved. She was having some diarrhea but she noted a history of Crohn's and that she had not had her medication since the previous day. Objective Vital signs: Temp Pulse Resp BP Pulse Ox 98.2 F 63 20 151/75 H 95 01/24/18 07:25 01/24/18 07:25 01/24/18 07:25 01/24/18 07:25 01/24/18 08:38 Results Completed studies during hospitalization [Text1]: Laboratory Tests 01/21/18 01/21/18 01/21/18 17:45 17:45 19:05 WBC 18.7 H RBC 4.45 Hgb 12.9 Hct 38.9 MCV 87.5 MCH 28.9 MCHC 33.1 RDW 13.4 Plt Count 232 MPV 8.2 Neut % (Auto) 91.8 H Lymph % (Auto) 3.8 L [place] % (Auto) 4.0 Eos % (Auto) 0.3 Baso % (Auto) 0.1 Neut # (Auto) 17.1 H Neutrophils % (Manual) 92 H Lymphocytes % (Manual) 6 L Sodium 124 L Potassium 2.5 L* Chloride 85 L Carbon Dioxide 28 BUN 29 H Creatinine 1.32 H Estimated Creat Clear Estimated GFR 40 L Glucose 143 H Lactate Calcium 8.8 Magnesium 2.0 AST 49 H ALT 36 Alkaline Phosphatase 86 Total Protein 7.6 Albumin 2.6 L 01/21/18 01/22/18 01/23/18 19:07 11:00 06:36 WBC 14.4 H 11.6 H RBC 3.91 L 3.88 L Hgb 11.3 L D 11.0 L Hct 34.7 L 34.1 L MCV MCH MCHC RDW Plt Count MPV Neut % (Auto) 85.5 H 82.1 H Lymph % (Auto) 9.8 L 12.0 [place] % (Auto) 4.4 Eos % (Auto) Baso % (Auto) Neut # (Auto) Neutrophils % (Manual) Lymphocytes % (Manual) Sodium Potassium Chloride Carbon Dioxide BUN Creatinine Estimated Creat Clear Estimated GFR Glucose Lactate 1.0 Calcium Magnesium AST ALT Alkaline Phosphatase Total Protein Albumin 01/23/18 01/24/18 01/24/18 06:36 07:07 07:07 WBC 11.0 H RBC 3.80 L Hgb 10.9 L Hct 33.4 L MCV MCH MCHC RDW Plt Count MPV Neut % (Auto) 77.0 Lymph % (Auto) 15.7 [place] % (Auto) Eos % (Auto) Baso % (Auto) Neut # (Auto) Neutrophils % (Manual) Lymphocytes % (Manual) Sodium 134 L 136 Potassium 3.3 L D 3.2 L Chloride 99 102 Carbon Dioxide 29 28 BUN 16 D 12 Creatinine 0.92 D 0.87 Estimated Creat Clear 58 58 Estimated GFR Glucose 101 Lactate Calcium 8.2 L 8.4 L Magnesium AST 51 H ALT Alkaline Phosphatase Total Protein 6.0 L Albumin 1.9 L Labs on day of discharge: Preliminary micro results at discharge 01/21/18 19:50 Blood Culture - Preliminary Blood Escherichia coli 01/21/18 19:07 Blood Culture - Preliminary Blood NO GROWTH AFTER 48 HOURS Microbiology 01/21/18 17:45 Urine,Clean Catch Urine Culture - Final Escherichia coli 01/21/18 19:50 Blood Blood Culture - Preliminary Escherichia coli DS: Diagnosis - Discharge Diagnosis (1) Acute UTI (urinary tract infection) Status: Acute (2) Bacteremia Status: Acute (3) Weakness Status: Acute (4) Hypokalemia Status: Acute (5) Dehydration Status: Acute (6) Crohn's disease Status: Chronic (7) Hypertension Status: Chronic (8) Hyperlipidemia Status: Chronic Discharge Plan - Patient Discharge Instructions ACTIVITY: Continue current activity DIET: continue same diet Patient Instructions: DI for Urinary Tract Infection (UTI) - Follow up Plan Follow up with: Monica Delgado [Primary Care Provider] - 02/01/18 Disposition: Home, Self-Longterm Medications: Home Medications Medication Instructions Recorded Confirmed Type Atenolol/Chlorthalidone 1 each PO DAILY 01/21/18 01/22/18 History [Atenolol-Chlorthalidone 50-25] Budesonide [Budesonide EC] 3 mg PO DAILY 01/21/18 01/22/18 History Calcium Carb, Citrate/Vit D3 1 each PO DAILY 01/21/18 01/22/18 History [Citracal + D ER Tablet] Cholecalciferol (Vitamin D3) 1,000 unit PO BID 01/21/18 01/21/18 History [Vitamin D3 1,000 Unit Cap] Pravastatin Sodium 80 mg PO DAILY 01/21/18 01/21/18 History Potassium Chloride [Klor-Con 10mEq 20 meq PO DAILY 01/22/18 01/22/18 History tab] Prescriptions/Medication Reconciliation: New levoFLOXacin [Levaquin 750mg tablet] 750 mg PO DAILY #7 tab Potassium Chloride [K-Tab ER 20 mEq] 20 meq PO DAILY #30 tab Continue Calcium Carb, Citrate/Vit D3 [Citracal + D ER Tablet] 1 each PO DAILY Budesonide [Budesonide EC] 3 mg PO DAILY Atenolol/Chlorthalidone [Atenolol-Chlorthalidone 50-25] 1 each PO DAILY Pravastatin Sodium 80 mg PO DAILY Cholecalciferol (Vitamin D3) [Vitamin D3 1,000 Unit Cap] 1,000 unit PO BID Potassium Chloride [Klor-Con 10mEq tab] 20 meq PO DAILY Discontinued Nitrofurantoin Monohyd/M-Cryst [Nitrofurantoin [place]-Mcr 100 mg] 100 mg PO BID
== END 2018-01-24 10:51 | disposition home or self-care (01) ==
LOC: ER 18:02 → 2ND 18:02 → OBSVTOIN 20:52 → 2ND 20:53
PROVIDERS: ADMIT Emergency Medicine; ATTEND Emergency Medicine
CPT/HCPCS: 36415; 80048; 80053; 81001; 83605; 83735; 85007; 85025; 87040; 87077; 87086; 87088; 87186; 87507; 93005; 96365; 96367; 99284; J1956

== ENCOUNTER 2024-11-12 12:50 | Observation (INO) | payer MEDICARE, SELFPAY ==
[2024-11-12] VITALS (7 sets, daily range): BP systolic 122–204; BP diastolic 66–95; PULSE 59–74; RESP 16–18; TEMP 36.3–36.7; O2SAT 94–98; BMI 19.6
--- NOTE | 2024-11-12 13:01 | CT_ITS ---
PROCEDURE INFORMATION: Exam: CT Head Without Contrast Exam date and time: 11/12/2024 2:14 PM Age: 79 years old Clinical indication: Altered mental status/memory loss; Additional info: AMS TECHNIQUE: Imaging protocol: Computed tomography of the head without contrast. Radiation optimization: All CT scans at this facility use at least one of these dose optimization techniques: automated exposure control; mA and/or kV adjustment per patient size (includes targeted exams where dose is matched to clinical indication); or iterative reconstruction. COMPARISON: No relevant prior studies available. FINDINGS: Brain: Moderate brain volume loss. Moderate white matter changes typical of hypertension or chronic small vessel ischemia. Cerebral ventricles: No ventriculomegaly. Paranasal sinuses: Scattered mucosal thickening and fluid in the visualized paranasal sinuses. Three calcifications or osteomas in the right ethmoid sinus; largest measures 8 x 8 x 9 mm. Mastoid air cells: Visualized mastoid air cells are well aerated. Orbital cavities: Bilateral lens replacements. Bones: Unremarkable. No acute fracture. Soft tissues: Unremarkable. Vasculature: Atherosclerosis. IMPRESSION: No acute intracranial abnormality.
--- NOTE | 2024-11-12 13:01 | CT_ITS ---
PROCEDURE INFORMATION: Exam: CTA Chest With Contrast Exam date and time: 11/12/2024 2:16 PM Age: 79 years old Clinical indication: Shortness of breath; Additional info: SOB TECHNIQUE: Imaging protocol: Computed tomographic angiography of the chest with contrast. Exam focused on the arteries. 3D rendering (Not supervised by radiologist): MIP and/or 3D reconstructed images were created by the technologist. Radiation optimization: All CT scans at this facility use at least one of these dose optimization techniques: automated exposure control; mA and/or kV adjustment per patient size (includes targeted exams where dose is matched to clinical indication); or iterative reconstruction. Contrast material: ISOVUE; Contrast volume: 70 ml; Contrast route: INTRAVENOUS (IV); COMPARISON: CT ABDOMEN PELVIS W CON 11/12/2024 2:16 PM FINDINGS: Pulmonary arteries: Main pulmonary artery is normal in caliber. No CT evidence for central or segmental pulmonary embolism. Aorta: Normal caliber of the ascending and descending thoracic aorta. No evidence for dissection. Heavy peripheral atherosclerotic plaque at the aortic arch and extending into the origins of the great vessels. Moderate stenosis within the proximal aspect of the left common carotid artery. High-grade to critical stenosis within the proximal aspect of the left subclavian artery. Left subclavian artery remains patent. Lungs: 3.3 mm subpleural nodule within the posterolateral aspect of the left upper lobe (image 35 of series 6). Small 2.2 mm nodule within the right upper lobe (image 38 of series 6). 3.1 mm nodule within the left lower lobe (image 62 of series 6). 5.2 mm oval partially calcified nodule within the periphery of the left lower lobe (image 66 of series 6). There are a few additional scattered 2-3 mm nodules within the left lower lobe which appear calcified or partially calcified. These are more in keeping with small granulomas and are most likely benign. Circumscribed 6.5 mm calcified granuloma within the left lower lobe. This is benign. No large suspicious mass or airspace consolidation. There are a few scattered areas of centrilobular emphysematous change. Pleural spaces: No pleural effusion or pneumothorax. Heart: Heart size is within normal limits. No pericardial effusion. Heavy coronary artery calcifications are present. Lymph nodes: No mediastinal mass or suspicious lymphadenopathy. Calcified subcarinal and left hilar lymph nodes are present. No hilar mass. Bones/joints: 8 mm circumscribed area of sclerosis within the anterior central aspect of the T1 vertebral body. In the absence of any known malignancy, this almost certainly is benign. Bones are diffusely demineralized. Multilevel advanced degenerative changes are present throughout the spine. No acute fracture. No areas of severe central spinal canal stenosis within the thoracic spine. Mild spinal canal narrowing at C5-C6. Very mild anterolisthesis of C6 on C7 secondary to facet arthropathy and bony hypertrophy. Advanced disc space narrowing and associated degenerative endplate changes present at the T12-L1, L1-L2 and L2-L3 levels. Soft tissues: No axillary mass or lymphadenopathy. There are no enlarged or suspicious supraclavicular lymph nodes. IMPRESSION: 1. No CT evidence for central or segmental pulmonary embolism. 2. Normal caliber of the ascending and descending thoracic aorta. No evidence for dissection. Heavy atherosclerotic plaque is present at the aortic arch. Moderate stenosis of the origin of the left common carotid artery. High-grade to critical stenosis of the origin of the left subclavian artery. 3. Heavy coronary artery calcifications are present. 4. Calcified subcarinal and left hilar lymph nodes are present. There are few scattered calcified granulomas within the left lower lobe. 5. There are a few scattered pulmonary nodules as described. Largest true nodule measures up to 3.3 mm. For patients at low risk (minimal or absent history of smoking and of other known risk factors), no routine follow-up is indicated. For patients at high risk (history of smoking or of other known risk factors), consider optional CT Chest at 12 months. (Reference: Agnieszka) 6. Please see report from CT scan of the abdomen and pelvis performed same day November 12, 2024. REFERENCES: Agnieszka Johnson et al. Guidelines for Management of Incidental Pulmonary Nodules Detected on CT Images: From the Fleischner Society 2017. Radiology. 2017;284(1):228-243.
--- NOTE | 2024-11-12 13:01 | CT_ITS ---
PROCEDURE INFORMATION: Exam: CT Abdomen And Pelvis With Contrast Exam date and time: 11/12/2024 2:16 PM Age: 79 years old Clinical indication: Abdominal pain; Additional info: Bl flank pain TECHNIQUE: Imaging protocol: Computed tomography of the abdomen and pelvis with contrast. 3D rendering (Not supervised by radiologist): MIP and/or 3D reconstructed images were created by the technologist. Radiation optimization: All CT scans at this facility use at least one of these dose optimization techniques: automated exposure control; mA and/or kV adjustment per patient size (includes targeted exams where dose is matched to clinical indication); or iterative reconstruction. Contrast material: ISOVUE; Contrast volume: 70 ml; Contrast route: IV; COMPARISON: 1. CT ANGIO CHEST PE PROTOCOL 11/12/2024 2:16 PM 2. There are no other relevant prior examinations for comparison. FINDINGS: Lungs: Lung bases are clear. Pleural spaces: No pleural effusion. Heart: Heart size within normal limits. No pericardial effusion. Coronary arteries: Coronary artery calcifications are present at the base of the heart. Liver: Early timing of the contrast bolus limits evaluation of the liver. Hepatic veins are not yet opacified. Heterogeneous decreased density throughout the liver more in keeping with hepatic steatosis. There are a few scattered probable punctate calcifications within the liver, more in keeping with prior granulomatous disease. Liver demonstrates heterogeneous enhancement. No distinct mass. Gallbladder and biliary ducts: The gallbladder is mildly distended. No gallbladder wall thickening or surrounding inflammatory change. No opaque stones or sludge within the gallbladder. No significant intrahepatic ductal dilatation. Mild fullness of the common bile duct. The common bile duct tapers to a normal caliber of the head of the pancreas. Pancreas: No suspicious mass or lesion within the pancreas. There are a few scattered punctate calcifications within the pancreas which can be seen in the setting of chronic pancreatitis. No surrounding inflammatory change or free fluid. Pancreatic duct measures up to 3 mm in greatest diameter within the body of the pancreas. Spleen: Early timing of the contrast bolus limits evaluation of the spleen. Spleen demonstrates heterogeneous enhancement. No focal suspicious mass. Numerous scattered punctate calcifications are present within the spleen in keeping with prior granulomatous disease. Adrenal glands: Enlarged and slight nodular appearance of the left adrenal gland without otherwise distinct adrenal mass. Right adrenal gland demonstrates heterogeneous decreased density. Kidneys and ureters: Early timing of the contrast bolus limits evaluation of the kidneys. Left kidney is malrotated. No hydronephrosis on the right or left. 11 mm peripheral cortical hypodensity demonstrates minimal peripheral enhancement along the posterior margin and is somewhat indeterminate. No large solid suspicious mass. No large renal calculi. Mild fullness of the left ureter. No ureteral calculi are identified. Stomach and bowel: Circumferential mucosal thickening is present at the gastroesophageal junction. There is mucosal thickening within the cardia of the stomach. Areas of contrast enhancement along the periphery of the gastroesophageal junction corresponds to vasculature and may potentially correspond to small varices. Numerous fluid-filled small bowel loops are present throughout the abdomen and extending into the pelvis. No evidence of a small bowel obstruction. Appendix: No evidence of appendicitis. Intraperitoneal space: No free fluid or free intraperitoneal air. Vasculature: Heavy peripheral atherosclerotic plaque is present along the length of the infrarenal abdominal aorta. No infrarenal abdominal aortic aneurysm. No evidence for dissection. 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 There is reconstituted flow distally. Celiac artery is patent. High-grade to critical stenosis at the origin of the right common iliac artery. Right common iliac artery remains patent. Proximal aspect of the left common iliac artery is occluded. There is reconstituted flow distally just proximal to the bifurcation of the internal and external iliac arteries. High-grade stenosis or potential occlusion within the right internal iliac artery. Right and left external iliac arteries remain patent. High-grade stenosis within the distal aspect of the left external iliac artery. Moderate to high-grade stenosis within the proximal left common femoral artery. Main portal vein is patent. There is narrowing of the proximal main portal vein just beyond the confluence of the superior mesenteric vein and splenic vein. Superior mesenteric artery partially compresses the left renal vein. Lymph nodes: There are no enlarged or suspicious intra-abdominal, pelvic or retroperitoneal lymph nodes. No inguinal lymphadenopathy. Urinary bladder: Unremarkable as visualized. Reproductive: Status post prior hysterectomy. No suspicious adnexal mass. Bones/joints: The bones are diffusely demineralized. Moderate dextroscoliosis centered near the thoracolumbar junction. There is multilevel advanced disc space narrowing and degenerative endplate change throughout the visualized portion of the thoracic and lumbar spine. Area of sclerosis at T12-L1 and L2-L3 more compatible with advanced degenerative endplate change. No suspicious lytic or sclerotic bone lesion. No acute fracture. Osteoarthritic changes are present at the right and left hip joint, greater on the right. Multilevel advanced degenerative facet arthropathy and bony hypertrophy throughout the lumbar spine. Soft tissues: Musculature surrounding the pelvis appear symmetric. Abdominal wall musculature appears symmetric. No large ventral hernia. No subcutaneous soft tissue swelling or focal fluid collection. IMPRESSION: 1. No focal inflammatory process or free fluid within the abdomen or pelvis. No evidence of a bowel obstruction. No hydronephrosis. 2. Heavy atherosclerotic plaque is present along the infrarenal abdominal aorta and extending along the iliac arteries. No infrarenal abdominal aortic aneurysm. No evidence for dissection. Proximal segment of the superior mesenteric artery is very small in caliber and likely occluded. There is reconstituted flow and normal caliber distally. Proximal segment of the left common iliac artery is occluded. There is reconstituted flow distally. High-grade stenosis at the origin of the right common iliac artery. Right internal iliac artery is near occluded. High-grade stenosis within the distal left external iliac artery and proximal left common femoral artery. Origin of the superior mesenteric artery partially compresses of the left renal vein. Early timing of the contrast bolus limits evaluation. 3. Mild circumferential wall thickening of the gastroesophageal junction. There is mild mucosal thickening within the cardia of the stomach. Nonemergent esophagram or endoscopy could be considered for further evaluation. 4. Heterogeneous decreased density throughout the liver, more suggestive of fatty infiltration. Early timing of the contrast bolus limits evaluation. No discrete mass or lesion within the liver. 5. Small 11 mm exophytic cortical hypodensity within the periphery of the left mid kidney. More likely this corresponds to a small cyst but is somewhat indeterminate with minimal enhancement along the posterior margin. Early timing of the contrast bolus limits evaluation of the kidneys. Follow-up multiphase CT scan of the kidneys or MRI of the kidneys could be considered for further evaluation. 6. Left adrenal gland is mildly enlarged and appears heterogeneous. No discrete mass. 7. Multilevel advanced degenerative changes are present throughout the spine. No acute fracture. No suspicious lytic or sclerotic bone lesion. Multilevel moderate spinal canal stenosis. 8. Additional findings as described above. COMMENTS: Consistent with the [employer]'s Incidental Findings Committee white paper (J Am Roldan Radiol 2018): Any incidental renal lesion less than 1 cm or classified as too small to characterize, or any incidental cystic renal lesion characterized as simple-appearing, is likely benign. No follow-up imaging is recommended for these lesions per consensus recommendations based on imaging criteria.
--- NOTE | 2024-11-12 13:02 | ED_ITS ---
Discharge Plan Disposition Patient Disposition: Admitted Prescriptions Prescriptions: No Action atenolol-chlorthalidone 1 EACH Tablet 1 ea PO DAILY Rx Instructions: 50/25mg pravastatin 80 MG Tablet 80 mg PO DAILY budesonide 3 MG Capdr...Er 3 mg PO DAILY cholecalciferol (vitamin D3) [Vitamin D3] 1,000 UNIT Capsule 1,000 unit PO BID calcium carb, citrate-vit D3 [Citracal-D3 Slow Release] 1 EACH Tablet.Er 1 ea PO DAILY potassium chloride [Klor-Con 10] 10 MEQ Tablet.Er 20 meq PO DAILY Patient Comments: TAKE 2 TABLETS BY MOUTH EVERY DAY levofloxacin 750 MG tablet 750 mg PO DAILY Qty: 7 0RF potassium chloride 20 MEQ tablet extended release 20 meq PO DAILY Qty: 30 0RF Referrals Follow up/Referrals: Monica Delgado [Primary Care Provider, Medical] - See instructions Clinical Impressions Clinical Impression: Acute encephalopathy, Acute pancreatitis Print Language Print Language: Maltese Discharge ED Provider: Neil Valdovinos General Adult HPI <Neil Valdovinos MD - Last Filed: 11/12/24 15:22> General Chief complaint: Upper Respiratory Infection Stated complaint: confusion, cough, congestion, some back pain, leth Time Seen by Provider: 11/12/24 12:56 Mode of Arrival: Ambulatory Source of Information: Relative (daughter) Limitations: Altered Mental Status History of Present Illness HPI narrative: This is a 79-year-old female with a past medical history of hypertension, hyperlipidemia, Crohn's disease, dementia presenting with concern for altered mental status, cough, bilateral flank pain. History is provided by daughter who is at bedside. States the patient lives with her however daughter provides a significant amout of medical care. States that patient got a upper respiratory infection from her grandson about 2 weeks ago however she has had a deep lingering cough since then. States that this morning, patient was more confused and did not recognize daughter. Also reporting bilateral flank pain. Has a history of UTIs in the past. Related Data Home Medications ?Medication ?Instructions ?Recorded ?Confirmed atenolol 50 mg-chlorthalidone 25 1 ea PO DAILY Hyperte nsion 01/21/18 01/22/18 mg tablet budesonide 3 mg 3 mg PO DAILY ulcerative col itis 01/21/18 01/22/18 capsule,delayed,extended release calcium ER 600 mg (as carb,cit)-D3 1 ea PO DAILY Suppl ement 01/21/18 01/22/18 12.5 mcg (500 unit) tablet, ext.rel (Citracal-D3 Slow Release) cholecalciferol (vitamin D3) 25 1,000 unit PO BID Supp lement 01/21/18 01/21/18 mcg (1,000 unit) capsule (Vitamin D3) pravastatin 80 mg tablet 80 mg PO DAILY Cholesterol 1 03/23/17 01/21/18 potassium chloride 10 mEq 20 meq PO DAILY Potassiuem 1 03/24/17 01/22/18 tablet,extended release (Klor-Con) replacement Previous Rx's ?Medication ?Instructions ?Recorded levofloxacin 750 mg tablet 750 mg PO DAILY #7 tabs 04/12 potassium chloride 20 mEq 20 meq PO DAILY #30 tabs 04/12 tablet,extended release Allergies Allergy/AdvReac Type Severity Reaction Status Date / Time No Known Allergies Allergy Verified 01/21/18 18:13 [facility]LY [facility], [facility] <Neil Valdovinos MD - Last Filed: 11/12/24 15:22> FORMERLY [facility], [facility] Disclaimer: The information contained in this section may have been updated after the patient was seen, as this information can be updated by other users. Social History Smoking Status: Current every day smoker tobacco type: cigarettes packs per day: 1 alcohol intake: never current occupational status: retired Travel in the last 8 weeks?: None household members: spouse housing: other Have you lived/traveled outside [place] in past 30 days?: No Contact w/someone who lives/traveled outside [place] past 30 days?: No Exposure to someone with infectious disease in past 14 days?: No Do you have a fever (greater than 100.4 F or 38 C)?: No Have you tested positive for COVID-19?: No Exposed to someone with COVID-19 in past 14 days?: No Do you have a sore throat?: No Do you have a cough?: Yes Do you have any weakness?: No Do you have any diarrhea?: No Are you experiencing any unusual bleeding?: No Do you have any muscle aches/pain?: Yes Do you have any abdominal pain?: No Are you experiencing loss of taste or smell?: No Other Medical History Have you received the Flu Vaccine for this season: No Have you received the Pneumonia Vaccine: No <Neil Valdovinos MD - Last Filed: 11/12/24 15:22> ROS Obtained: Yes All systems reviewed & no additional complaints except as documented Physical Exam <Neil Valdovinos MD - Last Filed: 11/12/24 15:22> General General appearance: alert and in no apparent distress Head Head exam: atraumatic Eye Eye exam: Present normal appearance, PERRL and EOMI Neck Neck exam: Present normal inspection and full ROM Chest Chest inspection: Present symmetric chest wall rise Respiratory Respiratory exam: Present normal lung sounds bilaterally; Absent respiratory distress Cardiovascular Cardiovascular exam: Present regular rate and normal rhythm Abdominal Exam Abdominal exam: Present soft; Absent distention Extremities Exam Extremities exam: Present normal inspection Neurological Exam Neurological exam: Present alert and oriented X3 Psychiatric Psychiatric exam: Present normal affect and normal mood Skin Skin exam: Present warm and dry Medical Decision Making <Neil Valdovinos MD - Last Filed: 11/12/24 15:22> Medical Records Medical records reviewed: Yes I reviewed the patient's medical records. Screening: Per USPSTF and CDC recommendations, given the prevalence of disease in our region, it is our hospital?s policy to screen for HIV and viral Hepatitis for all patients aged 18 and over and those with ongoing risk factors. MR Comment: Reviewed hospital medicine discharge note from 01/25/2018 notable for patient's establish care as a patient of Dr. Zarate and her past medical history. Admitted in the setting of UTI Adalberto Inquiry Pt receiving controlled substance: No Vital Signs: 11/12/24 13:03 11/12/24 14:00 11/12/24 15:59 Temperature 97.4 F L Temperature Source Oral Pulse Rate 66 62 Pulse Rate [Right] 74 Respiratory Rate 18 18 18 Blood Pressure 122/66 175/69 H Blood Pressure [Right Arm] 165/80 H Blood Pressure Mean 84 104 Blood Pressure Mean [Right Arm] 108 02 Sat by Pulse Oximetry 95 95 98 Oxygen Delivery Method Room Air 11/12/24 17:46 Temperature Temperature Source Pulse Rate 59 L Pulse Rate [Right] Respiratory Rate 18 Blood Pressure 204/84 H Blood Pressure [Right Arm] Blood Pressure Mean 118 Blood Pressure Mean [Right Arm] 02 Sat by Pulse Oximetry 96 Oxygen Delivery Method Lab Data Lab Results 11/12/24 13:00: Urine Color Yellow, Urine Appearance Clear, Urine pH 6.0, Ur Specific [place] 1.020, Urine Protein Negative, Urine Glucose (UA) Negative, Urine Ketones Negative, Urine Blood Trace-i, Urine Nitrate Negative, Urine Bilirubin Negative, Urine Urobilinogen 0.2, Ur Leukocyte Esterase Negative, Urine RBC Occasional, Urine WBC Occasional, Ur Squamous Epith Cells Occasional, Urine Bacteria Trace 11/12/24 13:14: WBC 8.9, RBC 4.50, Hgb 13.4, Hct 39.7, MCV 88.2, MCH 29.8, MCHC 33.8, RDW 13.2, Plt Count 239, MPV 8.9, Neut % (Auto) 53.4, Lymph % (Auto) 35.8, [place] % (Auto) 9.4 H, Eos % (Auto) 0.9, Baso % (Auto) 0.2, Neut # (Auto) 4.8, Lymph # (Auto) 3.2, [place] # (Auto) 0.8, Eos # (Auto) 0.1, Baso # (Auto) 0.0, S odium 134 L, Potassium 4.0, Chloride 97 L, Carbon Dioxide 30, Anion Gap 11.0, B UN 21 H, Creatinine 0.90, Estimated Creat Clear 34, Estimated GFR 60, Est GFR ( Amer) 73, Glucose 97, Lactate 0.9, Calcium 9.6, Total Bilirubin 0.4, A ST 38 H, ALT 20, Alkaline Phosphatase 55, Troponin I < 0.01, Total Protein 7.2, Albumin 4.2, Globulin 3.0, Albumin/Globulin Ratio 1.4, Lipase 1534 H, TSH 2.14, HCV Ab JOSE JUAN w/Rflx PCR Qn Negative, HIV Ag/Ab Combo Qual Negative 11/12/24 13:14 11/12/24 13:14 Orders (Tests/Meds): ED MEDICATIONS Generic Name Dose Route Start Last Admin Trade Name Freq PRN Reason Stop Dose Admin Nicotine 21 mg 11/12/24 17:30 11/12/24 17:30 Nicotine 21mg/24hr Patch TD 12/12/24 17:29 21 mg DAILY TIMOTHY Administration Sodium Chloride 10 ml 11/12/24 14:19 11/12/24 14:19 Sodium Chloride 0.9% 10ml Syr (Rad Only) IV 12/12/24 14:18 10 ml NEEDED PRN Administration Maintain IV Site Discontinued Medications Generic Name Dose Route Start Last Admin Trade Name Louie PRN Reason Stop Dose Admin Lactated Ringer's 500 mls @ 999 mls/hr 11/12/24 15:22 11/12/24 17:35 Lactated Ringer's 500ml IV 11/12/24 15:52 Infused .Q31M ONE Infusion Iopamidol 70 ml 11/12/24 14:19 11/12/24 14:19 Iopamidol-370 (76%);100ml Bottle IV 11/12/24 14:20 70 ml ONCE ONE Administration Sodium Chloride 50 ml 11/12/24 14:19 11/12/24 14:19 0.9 % Sodium Chloride 50 Ml Vial IV 11/12/24 14:20 50 ml ONCE ONE Administration ORDERS Category Date Time Status CT abdomen pelvis w con Stat Cat Scan 11/12/24 13:[address] head/brain wo con Stat Cat Scan 11/12/24 13:01 Completed CTA Chest [CT angio chest PE protocol] Stat Cat Scan 11/12/24 13:01 Completed CBC w/Auto Diff [Complete Blood Count Auto Diff] Stat Lab 11/12/24 13:14 Completed CMP [Comprehensive Metabolic Panel] Stat Lab 11/12/24 13:14 Completed HIV Combo Stat Lab 11/12/24 13:14 Completed Hepatitis C Ab Qual. W/ RFX Stat Lab 11/12/24 13:14 Completed Lactic Acid Stat Lab 11/12/24 13:14 Completed Lipase Stat Lab 11/12/24 13:14 Completed TSH [Thyroid Stimulating Hormone] Stat Lab 11/12/24 13:14 Completed Troponin I Stat Lab 11/12/24 13:14 Completed Urinalysis and Microscopic Stat Lab 11/12/24 13:00 Completed ECG Data Tracing #1: I reviewed this ECG and interpreted as documented below: Normal sinus rhythm at a rate of 66, QTc 419, normal axis, no STEMI Medical Decision Narrative: In summary, this 79-year-old female presents to the emergency department today with altered mental status, cough, bilateral flank pain. Patient's comorbidities include hypertension, hyperlipidemia, Crohn's disease, dementia which are not at goal therapy and may be exacerbating symptoms and increase patient's risk of morbidity/mortality. On initial evaluation patient is afebrile, hemodynamically stable, nontoxic- appearing. GCS of 14. Differential diagnosis includes but is not limited to UTI, pyelonephritis, cystitis, electrolyte abnormality, ACS, pneumonia, viral illness, intracranial hemorrhage. Based on these concerns, I ordered EKG, CBC, CMP, urinalysis, troponin, CT head, CT PE, CT abdomen pelvis with IV contrast. ECG personally interpreted as noted above. Labs reviewed demonstrate nonactionable CBC, lipase of 1534 concerning for pancreatitis, AST of 38 which is similar to previous, no UTI. CT imaging independently interpreted by me demonstrates no acute intracranial pathology.. At the time of shift change, CT imaging radiology reports were pending. Care handed off to Dr. Ratliff at 1500 pending rads reads with plan for likely admission. <Suresh Ratliff MD - Last Filed: 11/12/24 18:02> Vital Signs: 11/12/24 13:03 11/12/24 14:00 11/12/24 15:59 Temperature 97.4 F L Temperature Source Oral Pulse Rate 66 62 Pulse Rate [Right] 74 Respiratory Rate 18 18 18 Blood Pressure 122/66 175/69 H Blood Pressure [Right Arm] 165/80 H Blood Pressure Mean 84 104 Blood Pressure Mean [Right Arm] 108 02 Sat by Pulse Oximetry 95 95 98 Oxygen Delivery Method Room Air 11/12/24 17:46 Temperature Temperature Source Pulse Rate 59 L Pulse Rate [Right] Respiratory Rate 18 Blood Pressure 204/84 H Blood Pressure [Right Arm] Blood Pressure Mean 118 Blood Pressure Mean [Right Arm] 02 Sat by Pulse Oximetry 96 Oxygen Delivery Method Lab Data Lab Results 11/12/24 13:00: Urine Color Yellow, Urine Appearance Clear, Urine pH 6.0, Ur Specific [place] 1.020, Urine Protein Negative, Urine Glucose (UA) Negative, Urine Ketones Negative, Urine Blood Trace-i, Urine Nitrate Negative, Urine Bilirubin Negative, Urine Urobilinogen 0.2, Ur Leukocyte Esterase Negative, Urine RBC Occasional, Urine WBC Occasional, Ur Squamous Epith Cells Occasional, Urine Bacteria Trace 11/12/24 13:14: WBC 8.9, RBC 4.50, Hgb 13.4, Hct 39.7, MCV 88.2, MCH 29.8, MCHC 33.8, RDW 13.2, Plt Count 239, MPV 8.9, Neut % (Auto) 53.4, Lymph % (Auto) 35.8, [place] % (Auto) 9.4 H, Eos % (Auto) 0.9, Baso % (Auto) 0.2, Neut # (Auto) 4.8, Lymph # (Auto) 3.2, [place] # (Auto) 0.8, Eos # (Auto) 0.1, Baso # (Auto) 0.0, S odium 134 L, Potassium 4.0, Chloride 97 L, Carbon Dioxide 30, Anion Gap 11.0, B UN 21 H, Creatinine 0.90, Estimated Creat Clear 34, Estimated GFR 60, Est GFR ( Amer) 73, Glucose 97, Lactate 0.9, Calcium 9.6, Total Bilirubin 0.4, A ST 38 H, ALT 20, Alkaline Phosphatase 55, Troponin I < 0.01, Total Protein 7.2, Albumin 4.2, Globulin 3.0, Albumin/Globulin Ratio 1.4, Lipase 1534 H, TSH 2.14, HCV Ab JOSE JUAN w/Rflx PCR Qn Negative, HIV Ag/Ab Combo Qual Negative Orders (Tests/Meds): ED MEDICATIONS Generic Name Dose Route Start Last Admin Trade Name Freq PRN Reason Stop Dose Admin Nicotine 21 mg 11/12/24 17:30 11/12/24 17:30 Nicotine 21mg/24hr Patch TD 12/12/24 17:29 21 mg DAILY TIMOTHY Administration Sodium Chloride 10 ml 11/12/24 14:19 11/12/24 14:19 Sodium Chloride 0.9% 10ml Syr (Rad Only) IV 12/12/24 14:18 10 ml NEEDED PRN Administration Maintain IV Site Discontinued Medications Generic Name Dose Route Start Last Admin Trade Name Freq PRN Reason Stop Dose Admin Lactated Ringer's 500 mls @ 999 mls/hr 11/12/24 15:22 11/12/24 17:35 Lactated Ringer's 500ml IV 11/12/24 15:52 Infused .Q31M ONE Infusion Iopamidol 70 ml 11/12/24 14:19 11/12/24 14:19 Iopamidol-370 (76%);100ml Bottle IV 11/12/24 14:20 70 ml ONCE ONE Administration Sodium Chloride 50 ml 11/12/24 14:19 11/12/24 14:19 0.9 % Sodium Chloride 50 Ml Vial IV 11/12/24 14:20 50 ml ONCE ONE Administration ORDERS Category Date Time Status CT abdomen pelvis w con Stat Cat Scan 11/12/24 13:[address] head/brain wo con Stat Cat Scan 11/12/24 13:01 Completed CTA Chest [CT angio chest PE protocol] Stat Cat Scan 11/12/24 13:01 Completed CBC w/Auto Diff [Complete Blood Count Auto Diff] Stat Lab 11/12/24 13:14 Completed CMP [Comprehensive Metabolic Panel] Stat Lab 11/12/24 13:14 Completed HIV Combo Stat Lab 11/12/24 13:14 Completed Hepatitis C Ab Qual. W/ RFX Stat Lab 11/12/24 13:14 Completed Lactic Acid Stat Lab 11/12/24 13:14 Completed Lipase Stat Lab 11/12/24 13:14 Completed TSH [Thyroid Stimulating Hormone] Stat Lab 11/12/24 13:14 Completed Troponin I Stat Lab 11/12/24 13:14 Completed Urinalysis and Microscopic Stat Lab 11/12/24 13:00 Completed Medical Decision Narrative: In summary, this 79-year-old female presents to the emergency department today with altered mental status, cough, bilateral flank pain. Patient's comorbidities include hypertension, hyperlipidemia, Crohn's disease, dementia which are not at goal therapy and may be exacerbating symptoms and increase patient's risk of morbidity/mortality. On initial evaluation patient is afebrile, hemodynamically stable, nontoxic- appearing. GCS of 14. Differential diagnosis includes but is not limited to UTI, pyelonephritis, cystitis, electrolyte abnormality, ACS, pneumonia, viral illness, intracranial hemorrhage. Based on these concerns, I ordered EKG, CBC, CMP, urinalysis, troponin, CT head, CT PE, CT abdomen pelvis with IV contrast. ECG personally interpreted as noted above. Labs reviewed demonstrate nonactionable CBC, lipase of 1534 concerning for pancreatitis, AST of 38 which is similar to previous, no UTI. CT imaging independently interpreted by me demonstrates no acute intracranial pathology.. At the time of shift change, CT imaging radiology reports were pending. Care handed off to Dr. Ratliff at 1500 pending rads reads with plan for likely admission. Suresh Ratliff MD At the time my assumption of care, plan was to follow-up results of CT imaging. Patient require admission for pancreatitis as well as encephalopathy. Ultimately, patient's workup was reviewed by me personally and showed no acute findings within abdomen or pelvis. 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 I did speak with radiology about this he does state that this is chronic in nature. 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 Thickening of the gastroesophageal junction. CT head without acute intracranial findings. On reevaluation, understates the patient does not appear to be back to her baseline but is not as severe as she was this morning. Patient does have some epigastric abdominal tenderness and grimacing on exam. In setting of her elevated lipase, this is concerning for acute pancreatitis. Workup today does not show any obvious findings for her acute encephalopathy. I did speak with Dr. Hererra with hospital medicine service for admission for her acute pancreatitis and encephalopathy and he was in agreement to admit the patient for further management. Critical Care <Neil Valdovinos MD - Last Filed: 11/12/24 15:22> Critical Care Time Critical Care Time: No
[2024-11-12 13:05] LABS: Microscopic, Urine URINE MICROSCOPIC (MICROSCOPIC)
[2024-11-12 13:07] LABS: Bilirubin,Urine Negative (Negative); Color,Urine YELLOW (Yellow); Glucose,Urine (UA) Negative (Negative); Ketones,Urine Negative (Negative); Leukocyte Esterase,Urine Negative (Negative); PH,Urine 6.0 (5.0-8.5); Protein,Urine Negative (Negative); Specific Gravity, Urine 1.020 (1.005-1.030); Urobilinogen,Urine 0.2 EU/dl (0.2)
[2024-11-12 13:24] LABS: Hematocrit 39.7 % (37.0-47.0); Hemoglobin 13.4 g/dL (12.2-16.2); Immature Granulocytes % 0.3 %; Mean Corpuscular HGB Conc 33.8 g/dL (31.8-35.4); Mean Corpuscular Hemoglobin 29.8 pg (27.0-31.2); Mean Corpuscular Volume 88.2 fl (81-99); Nucleated Red Blood Cells % 0 %; Platelet Count 239 K/mm3 (142-424); Red Blood Count 4.50 M/mm3 (4.20-5.40); Red Cell Distribution Width-SD 42.8 fL; White Blood Count 8.9 K/mm3 (4.8-10.8)
--- NOTE | 2024-11-12 13:26 | ECG_ITS ---
APPROVED REPORT Exam: Resting ECG HR:66 bpm ECG Measurements Heart Rate 66 AXES DC 166 P 73 QRSd 82 QRS 52 QT 406 T 52 QTc 419 Conclusion SINUS RHYTHM NONSPECIFIC T-WAVE ABNORMALITY BORDERLINE ECG Electronically signed by : Neil Valdovinos, 11/12/2024 15:49:51
[2024-11-12 13:36] LABS: Albumin Level 4.2 g/dl (3.5-5.0); Chloride 97 mmol/L (98-107); Sodium 134 mmol/L (136-145)
[2024-11-12 13:37] LABS: Potassium 4.0 mmoL/L (3.5-5.1)
[2024-11-12 13:39] LABS: Alanine Aminotransferase 20 U/L (12-78); Albumin/Globulin Ratio 1.4 (1.1-1.8); Alkaline Phosphatase 55 U/L (38-126); Anion Gap 11.0 mEq/L (5-15); Aspartate Amino Transferase 38 U/L (14-36); Bilirubin,Total 0.4 mg/dl (0.2-1.3); Blood Urea Nitrogen 21 mg/dl (7-17); Carbon Dioxide 30 mmol/L (22.0-30.0); Creatinine Clearance Estimated 34 mL/min (50-200); Creatinine,Serum 0.90 mg/dl (0.52-1.04); Estimated Glomerular Filt Rate 60 ml/min (>60); GFR (African American) 73 ML/MIN (>60); Globulin 3.0 g/dL (1.3-3.2); Total Protein,Serum 7.2 g/dl (6.3-8.2)
[2024-11-12 13:40] LABS: Calcium 9.6 mg/dl (8.4-10.2); Glucose 97 mg/dl (74-100)
[2024-11-12 13:45] LABS: Lipase 1534 U/L (23-300)
--- NOTE | 2024-11-12 13:46 | PC.NURSE ---
Dr. Valdovinos notified of Lipase of 1534.
[2024-11-12 14:05] LABS: Troponin I < 0.01 ng/ml (0.00-0.034)
[2024-11-12 14:11] LABS: Thyroid Stimulating Hormone 2.14 uIU/mL (0.465-4.68)
[2024-11-12 14:15] LABS: RBC,Urine Occasional #/hpf (0-3); WBC,Urine Occasional #/hpf (0-3)
[2024-11-12 14:16] LABS: Bacteria,Urine Trace /lpf; Squamous Epithelial Cell,Urine Occasional #/hpf (0-5)
[2024-11-12] MEDS: 0.9 % SODIUM CHLORIDE 50 ML VIAL IV (14:19)
[2024-11-12] MEDS: IOPAMIDOL-370 (76%);100ML BOTTLE 70 ML IV (14:19)
[2024-11-12] MEDS: SODIUM CHLORIDE 0.9% 10ML SYR (RAD ONLY) 10 ML IV (14:19)
--- NOTE | 2024-11-12 14:22 | PC.NURSE ---
pt back from RAD
[2024-11-12 14:29] LABS: Hepatitis C Ab Qual. W/ RFX NEGATIVE (Negative)
[2024-11-12] MEDS: RINGERS SOLUTION,LACTATED 500 ML 999 ML IV (15:41)
[2024-11-12] MEDS: NICOTINE 21MG/24HR PATCH 21 MG TD (17:30)
--- NOTE | 2024-11-12 18:05 | P.HP_ITS ---
History of Present Illness *Admission Date: 11/12/24 *Reason for visit:: confused *History of present illness: Ms. Londono is a 79-year-old female with history of hypertension, Crohn's in remission, tobacco use disorder, and dementia who is independently functional at baseline. She presented to the ER with concern for acute worsening of mental state. Daughter presents with her and helps supplement history. States the patient has had a cough for 1 to 2 weeks after grace a cold from her daughter. This morning she got up and made her cough and went right back to bed which is very unusual for her. She has not spoken much today and has been quite fatigued. Denies nausea or vomiting. Does complain of some mild abdominal pain in the ER. Has been taking Coricidin HBP for her URI symptoms. Is a daily smoker but does not use inhalers. Cough has been rhonchorous. Workup in the ER found to have lipase of 1500. Chest imaging did not show any focal pneumonia. No oxygen requirement. After several hours of observation in the ER, patient remained altered was unable to answer questions and not acting herself per daughter. Medicine consulted for admission given concern for pancreatitis with elevated lipase and encephalopathy due to her altered mental state. On evaluation after arriving to the floor, remained stable on room air. Able to tell me her name. Not oriented to place or time. Still off significantly from baseline per family. [facility] Disclaimer: The information contained in this section may have been updated after the patient was seen, as this information can be updated by other users. Social History Smoking Status: Current every day smoker tobacco type: cigarettes packs per day: 1 alcohol intake: never current occupational status: retired Travel in the last 8 weeks?: None household members: spouse housing: other Have you lived/traveled outside [place] in past 30 days?: No Contact w/someone who lives/traveled outside US past 30 days?: No Exposure to someone with infectious disease in past 14 days?: No Do you have a fever (greater than 100.4 F or 38 C)?: No Have you tested positive for COVID-19?: No Exposed to someone with COVID-19 in past 14 days?: No Do you have a sore throat?: No Do you have a cough?: Yes Do you have any weakness?: No Are you experiencing any nausea/vomitting?: No Do you have any diarrhea?: No Are you experiencing any unusual bleeding?: No Do you have any muscle aches/pain?: Yes Do you have any abdominal pain?: No Are you experiencing loss of taste or smell?: No Other Medical History Have you received the Flu Vaccine for this season: No Have you received the Pneumonia Vaccine: No Review of Systems Review of Systems Review of systems (narrative): 14 point review of systems performed, pertinent positives and negatives as per HPI Meds Home Medications and Allergies Home Medications ?Medication ?Instructions ?Recorded ?Confirmed ?Type atenolol 50 mg-chlorthalidone 25 0.5 ea PO DAILY Hyper tension 01/21/18 11/12/24 History mg tablet budesonide 3 mg 3 mg PO DAILY ulcerative col itis 01/21/18 11/12/24 History capsule,delayed,extended release calcium ER 600 mg (as carb,cit)-D3 1 ea PO DAILY Suppl ement 01/21/18 11/12/24 History 12.5 mcg (500 unit) tablet, ext.rel (Citracal-D3 Slow Release) cholecalciferol (vitamin D3) 25 1,000 unit PO BID Supp lement 01/21/18 11/12/24 History mcg (1,000 unit) capsule (Vitamin D3) pravastatin 80 mg tablet 80 mg PO DAILY Cholesterol 1 03/23/17 11/12/24 History potassium chloride 20 mEq 20 meq PO DAILY #30 tabs 04/1211/12/24 Rx tablet,extended release lisinopril 40 mg tablet 40 mg PO DAILY 11/12/2410/25 History memantine 7 mg capsule 7 mg PO DAILY 11/12/2411/12 History sprinkle,extended release 24hr multivitamin 1 tab PO DAILY 11/12/2410/25 History New Prescriptions to Start Prescriptions: Allergies Allergy/AdvReac Type Severity Reaction Status Date / Time No Known Allergies Allergy Verified 01/21/18 18:13 Exam Data for Last 24 hours Vital signs and Labs for Last 24 Hours: Temp Pulse Resp BP Pulse Ox O2 Del Method 97.4 F L 59 L 18 204/84 H 96 Room Air 11/12/24 13:03 11/12/24 17:46 11/12/24 17:46 11/12/24 17:46 11/12/24 17:46 11/12/24 13:03 Laboratory Results - last 24 hr 11/12/24 13:00: Urine Color Yellow, Urine Appearance Clear, Urine pH 6.0, Ur Specific [place] 1.020, Urine Protein Negative, Urine Glucose (UA) Negative, Urine Ketones Negative, Urine Blood Trace-i, Urine Nitrate Negative, Urine Bilirubin Negative, Urine Urobilinogen 0.2, Ur Leukocyte Esterase Negative, Urine RBC Occasional, Urine WBC Occasional, Ur Squamous Epith Cells Occasional, Urine Bacteria Trace 11/12/24 13:14: WBC 8.9, RBC 4.50, Hgb 13.4, Hct 39.7, MCV 88.2, MCH 29.8, MCHC 33.8, RDW 13.2, Plt Count 239, MPV 8.9, Neut % (Auto) 53.4, Lymph % (Auto) 35.8, [place] % (Auto) 9.4 H, Eos % (Auto) 0.9, Baso % (Auto) 0.2, Neut # (Auto) 4.8, Lymph # (Auto) 3.2, [place] # (Auto) 0.8, Eos # (Auto) 0.1, Baso # (Auto) 0.0, Sodium 134 L, Potassium 4.0, Chloride 97 L, Carbon Dioxide 30, Anion Gap 11.0, BUN 21 H, Creatinine 0.90, Estimated Creat Clear 34, Estimated GFR 60, Est GFR ( Amer) 73, Glucose 97, Lactate 0.9, Calcium 9.6, Total Bilirubin 0.4, AST 38 H, ALT 20, Alkaline Phosphatase 55, Troponin I < 0.01, Total Protein 7.2, Albumin 4.2, Globulin 3.0, Albumin/Globulin Ratio 1.4, Lipase 1534 H, TSH 2.14, HCV Ab JOSE JUAN w/Rflx PCR Qn Negative, HIV Ag/Ab Combo Qual Negative I & O for Last 24 hours: Intake & Output 11/09/24 11/10/24 11/11/24 11/12/24 23:59 23:59 23:59 23:59 Intake Total 500 / 500 Balance 500 / 500 Weight 47.174 kg Constitutional Constitutional: mild distress, thin, chronically ill appearing and cooperative Comments: Confused *Routine HEENT Exam Head: Present normocephalic Eye: Present EOMI and PERRL ENT: Present mucous membranes moist *Routine Neck Exam Neck: Present supple; Absent lymphadenopathy *Routine Respiratory Exam Respiratory: Present prolonged expiratory phase, rhonchi and normal respiratory effort; Absent wheezes or crackles *Routine Cardiovascular Exam Cardiovascular: Present RRR *Routine Abdominal Exam Abdominal: Present soft and normoactive bowel sounds; Absent tenderness *Routine Rectal Exam Rectal:: deferred *Routine Genitalia Exam Genitalia:: deferred *Routine Extremities Exam Extremities: Absent cyanosis, clubbing or edema *Routine Skin Exam Skin: Present intact and warm; Absent rash *Routine Neurological Exam Neurological: Present alert, altered mental status and moving all extremities Comments: Oriented to self only. Disoriented to family and situation. Not at her baseline. Assessment and Plan *Assessment and plan (1) Acute pancreatitis: Status: Acute Category: Medical Code(s): K85.90 - Acute pancreatitis without necrosis or infection, unspecified (2) Acute encephalopathy: Status: Acute Category: Medical Code(s): G93.40 - Encephalopathy, unspecified (3) Hypertension: Status: Chronic Category: Medical Code(s): I10 - Essential (primary) hypertension (4) Crohn's disease: Status: Chronic Category: Medical Code(s): K50.90 - Crohn's disease, unspecified, without complications (5) Dementia: Status: Acute Category: Medical Code(s): F03.90 - Unspecified dementia, unspecified severity, without behavioral disturbance, psychotic disturbance, mood disturbance, and anxiety Plan 79-year-old female with tobacco use history, Crohn's in remission, hypertension, dementia who presents with acute worsening of mental state. Workup in ER found to be positive for pancreatitis with lipase of 1500 as well as acute en cephalopathy. Unclear etiology. Discussed case with ER physician, requested admission for observation overnight and further management of her confusion. I agreed to admit for further care. Patient reports that she had been taking Coricidin HBP prior to admission. Concern for toxic component of encephalopathy due to medication side effect in conjunction with her dementia. Problems addressed as follows: Toxic encephalopathy on chronic dementia - Patient able to perform ADLs and independently mobile at home. Presented with acute worsening of confusion. Has been taking Coricidin HBP. In conjunction with new medication for memory (memantine). Acute worsening concerning for side effect from chlorpheniramine and dextromethorphan. Holding sedating meds and memantine. Monitor for improvement overnight. - Patient usually knows who she is and where she is and her daughter. While in the ER, could not answer questions. Frankly confused. Slow to respond to questions but time she arrived to the floor. - White count normal at 8.9, hemoglobin 13.4. Kidney function normal with BUN 21, creatinine 0.9. - Repeat CBC, CMP, magnesium ordered for the morning. - Holding memantine and donepezil Pancreatitis: - lipase elevated 1500. Pain on exam in the ER, improving on the floor. Will slowly advance diet with full liquids. Repeat lipase ordered for the morning. -CT of abdomen per my review with no peripancreatic stranding Hypertension: Blood pressure elevated due to agitation. Will resume atenolol 50 mg tonight along with lisinopril 40 mg nightly. Ulcerative colitis in remission: Continue budesonide 3 mg p.o. daily Tobacco use disorder: Initiate nicotine patch 21 mg daily. Will initiate DuoNebs every 6 hours as needed due to suspected COPD given patient's long-term smoking. Also in conjunction with her rhonchorous cough. - Respiratory panel pending Full code Lovenox 40 mg subcu daily Full liquid diet
--- NOTE | 2024-11-12 18:12 | PC.NURSE ---
report called to Bjorn
--- NOTE | 2024-11-12 18:45 | PC.NURSE ---
Pt. on the floor with daughter.
--- NOTE | 2024-11-12 18:53 | PC.NURSE ---
Dr. Herrera in room with patient.
[2024-11-12] MEDS: LACTATED RINGERS 1000ML 1,000 ML 100 ML IV (19:33)
[2024-11-12] MEDS: ATENOLOL 25MG TABLET 50 MG PO (19:38)
[2024-11-12] MEDS: LISINOPRIL 20MG TABLET 40 MG PO (19:40)
[2024-11-12] MEDS: KETOROLAC 15MG/ML VIAL 15 MG IV (19:46)
[2024-11-12 20:12] LABS: Adenovirus,PCR Not Detected (NotDetected); Chlamydophila Pneumoniae, PCR Not Detected (NotDetected); Coronavirus 19, PCR Not Detected (NotDetected); Coronovirus HKU1,PCR Not Detected (NotDetected); Influenza A, PCR Not Detected (NotDetected); Influenza AH1, 2009 Not Detected (NotDetected); Influenza AH1, PCR Not Detected (NotDetected); Influenza AH3,PCR Not Detected (NotDetected); Influenza B, PCR Not Detected (NotDetected); Mycoplasma Pneumoniae, PCR Not Detected (NotDetected); Parainfluenza 1, PCR Not Detected (NotDetected); Parainfluenza 2, PCR Not Detected (NotDetected); Parainfluenza 3, PCR Not Detected (NotDetected); Parainfluenza 4, PCR Not Detected (NotDetected)
[2024-11-13 04:00] VITALS: BP 126/68; PULSE 57; RESP 16; TEMP 36.4; O2SAT 95; BMI 20.6
--- NOTE | 2024-11-13 05:26 | PC.NURSE ---
Pt was a new Admit at the Change of shift at 1845. Pt is in the bed on RA, she is a full code, one assistance to the BR. Alert X 2. Pt is on a FL diet. She has LR at 100 going. PT has a bed alarm on. Pt is on Droplet for Rhino virus. Pt has slept thur the night.
[2024-11-13] MEDS: LACTATED RINGERS 1000ML 1,000 ML 100 ML IV (06:22)
[2024-11-13 07:44] LABS: Hematocrit 39.8 % (37.0-47.0); Hemoglobin 12.9 g/dL (12.2-16.2); Immature Granulocytes % 0.1 %; Mean Corpuscular HGB Conc 32.4 g/dL (31.8-35.4); Mean Corpuscular Hemoglobin 29.0 pg (27.0-31.2); Mean Corpuscular Volume 89.4 fl (81-99); Nucleated Red Blood Cells % 0 %; Platelet Count 205 K/mm3 (142-424); Red Blood Count 4.45 M/mm3 (4.20-5.40); Red Cell Distribution Width-SD 42.9 fL; White Blood Count 6.8 K/mm3 (4.8-10.8)
[2024-11-13 07:55] VITALS: BP 135/64; PULSE 59; RESP 18; TEMP 36.8; O2SAT 92
[2024-11-13 07:57] LABS: Albumin Level 3.8 g/dl (3.5-5.0); Chloride 95 mmol/L (98-107); Potassium 3.7 mmoL/L (3.5-5.1); Sodium 133 mmol/L (136-145)
[2024-11-13 08:00] LABS: Alanine Aminotransferase 17 U/L (12-78); Albumin/Globulin Ratio 1.5 (1.1-1.8); Alkaline Phosphatase 56 U/L (38-126); Anion Gap 10.7 mEq/L (5-15); Aspartate Amino Transferase 34 U/L (14-36); Bilirubin,Total 0.5 mg/dl (0.2-1.3); Blood Urea Nitrogen 13 mg/dl (7-17); Calcium 9.2 mg/dl (8.4-10.2); Carbon Dioxide 31 mmol/L (22.0-30.0); Creatinine Clearance Estimated 36 mL/min (50-200); Creatinine,Serum 0.70 mg/dl (0.52-1.04); Estimated Glomerular Filt Rate 81 ml/min (>60); GFR (African American) 98 ML/MIN (>60); Globulin 2.6 g/dL (1.3-3.2); Glucose 90 mg/dl (74-100); Magnesium 1.7 mg/dl (1.6-2.3); Total Protein,Serum 6.4 g/dl (6.3-8.2)
[2024-11-13] MEDS: NICOTINE 21MG/24HR PATCH 21 MG TD (08:15)
[2024-11-13 08:20] LABS: Lipase 839 U/L (23-300)
--- NOTE | 2024-11-13 09:47 | HMH.PHAINT1 ---
Pharmacy Intervention Comments: MEDICATION RECONCILIATION COMPLETED ON PATIENT USING EXTERNAL FILL HISTORY FROM PHARMACY. -SANDRA BARTON, MARYD
[2024-11-13] MEDS: FLUTICASONE/UMECLIDIN/VILANTER 100/62.5/25MCG INHALER 1 PUFF IH (11:10)
--- NOTE | 2024-11-13 15:27 | EXP.DC.SUM ---
General Admission date:: 11/12/24 Discharge date: 11/13/24 HPI HPI HPI: Ms. Londono is a 79-year-old female with history of hypertension, Crohn's in remission, tobacco use disorder, and dementia who is independently functional at baseline. She presented to the ER with concern for acute worsening of mental state. Daughter presents with her and helps supplement history. States the patient has had a cough for 1 to 2 weeks after grace a cold from her daughter. This morning she got up and made her cough and went right back to bed which is very unusual for her. She has not spoken much today and has been quite fatigued. Denies nausea or vomiting. Does complain of some mild abdominal pain in the ER. Has been taking Coricidin HBP for her URI symptoms. Is a daily smoker but does not use inhalers. Cough has been rhonchorous. Workup in the ER found to have lipase of 1500. Chest imaging did not show any focal pneumonia. No oxygen requirement. After several hours of observation in the ER, patient remained altered was unable to answer questions and not acting herself per daughter. Medicine consulted for admission given concern for pancreatitis with elevated lipase and encephalopathy due to her altered mental state. On evaluation after arriving to the floor, remained stable on room air. Able to tell me her name. Not oriented to place or time. Still off significantly from baseline per family. Hospital Course Hospital Course Hospital Course: 79-year-old female with tobacco use history, Crohn's in remission, hypertension, dementia who presents with acute worsening of mental state. Workup in ER found to be positive for pancreatitis with lipase of 1500 as well as acute encephalopathy. Unclear etiology. Discussed case with ER physician, requested admission for observation overnight and further management of her confusion. I agreed to admit for further care. Patient reports that she had been taking Coricidin HBP prior to admission. Concern for toxic component of encephalopathy due to medication side effect in conjunction with her dementia. Improved by morning. Back to baseline mentation per daughter. Will treat for COPD exacerbation as outpatient. Stable discharge home with family. Problems addressed as follows: Toxic encephalopathy on chronic dementia, resolved - Patient able to perform ADLs and independently mobile at home. Presented with acute worsening of confusion. Has been taking Coricidin HBP. In conjunction with new medication for memory (memantine). Acute worsening concerning for side effect from chlorpheniramine and dextromethorphan. Holding sedating meds and memantine. Monitored overnight. Back to baseline mentation by morning. Kidney function and electrolytes stable. Recommend holding memantine and avoiding sedating medications such as antihistamines or cold medicines. Pancreatitis, ruled out - lipase elevated 1500, repeat on morning of discharge at 800. Pain more or less resolved. Tolerating regular diet with no complaint of pain or nausea. -CT of abdomen per my review with no peripancreatic stranding Hypertension: Blood pressure elevated due to agitation. Improved with resumption of home medications. Continue home regimen with atenolol, chlorthalidone, lisinopril. Ulcerative colitis in remission: Continue budesonide 3 mg p.o. daily Tobacco use disorder: Suspected COPD with exacerbation Lung nodules - Longtime smoker. Gets short of breath with exertion. Suspect this is related to underlying COPD. CT of chest shows numerous subcentimeter nodules largest being 6.5 mm. No large suspicious mass or airspace consolidation. Has some changes consistent with COPD on imaging. I find it difficult to believe the patient does not have COPD given her extensive smoking history and findings on imaging along with dyspnea with exertion that is longstanding per daughter. Will treat her symptoms currently a COPD exacerbation secondary to rhino/enterovirus. Initiate doxycycline 100 mg twice daily for 5 days. Initiate Trelegy 100 inhaler. Provided with Combivent inhaler. Recommend using this every 4-6 hours as needed for dyspnea. No focal signs of pneumonia. No oxygen requirement at discharge. Stable on room air. Continue nicotine patch daily - Will need repeat chest imaging and referral for evaluation of her pulmonary nodules. Defer to PCP. Total time spent on discharge 32 minutes in counseling, documentation, chart review, and direct care with patient. Exam Data for Last 24 hours Vital signs and Labs for Last 24 Hours: Temp Pulse Resp BP Pulse Ox O2 Del Method 98.2 F 59 L 18 135/64 92 L Room Air 11/13/24 07:55 11/13/24 07:55 11/13/24 07:55 11/13/24 07:55 11/13/24 07:55 11/13/24 15:00 Laboratory Results - last 24 hr 11/12/24 15:57: Lactate Dehydrogenase 226 L 11/12/24 20:05: Chlamy pneumoniae PCR Not detected, Adenovirus (PCR) Not detected, B. pertussis DNA (PCR) Not detected, Coronavirus OC43 (PCR) Not detected, Coronavirus HKU1 (PCR) Not detected, Coronavirus 229E (PCR) Not detected, SARS-CoV-2 (PCR) Not detected, Coronavirus NL63 (PCR) Not detected, Human Metapneumovir PCR Not detected, Influenza A (H1) PCR Not detected, Influ A (H1N1/09) PCR Not detected, Influenza A (H3) PCR Not detected, Influenza Type A (PCR) Not detected, Influenza Type B (PCR) Not detected, M. pneumoniae (PCR) Not detected, Parainfluenza 1 (PCR) Not detected, Parainfluenza 2 (PCR) Not detected, Parainfluenza 3 (PCR) Not detected, Parainfluenza 4 (PCR) Not detected, RSV (PCR) Not detected, Entero/Rhino (PCR) Detected A 11/13/24 07:04: WBC 6.8, RBC 4.45, Hgb 12.9, Hct 39.8, MCV 89.4, MCH 29.0, MCHC 32.4, RDW 13.0, Plt Count 205, MPV 9.1, Neut % (Auto) 59.2, Lymph % (Auto) 32.3, [place] % (Auto) 7.4, Eos % (Auto) 0.9, Baso % (Auto) 0.1, Neut # (Auto) 4.0, Lymph # (Auto) 2.2, [place] # (Auto) 0.5, Eos # (Auto) 0.1, Baso # (Auto) 0.0, Sodium 133 L, Potassium 3.7, Chloride 95 L, Carbon Dioxide 31 H, Anion Gap 10.7, BUN 13 D, Creatinine 0.70 D, Estimated Creat Clear 36, Estimated GFR 81, Est GFR ( Amer) 98 D, Glucose 90, Calcium 9.2, Magnesium 1.7, Total Bilirubin 0.5, AST 34, ALT 17, Alkaline Phosphatase 56, Total Protein 6.4, Albumin 3.8, Globulin 2.6, Albumin/Globulin Ratio 1.5, Lipase 839 H I & O for Last 24 hours: Intake & Output 11/10/24 11/11/24 11/12/24 11/13/24 23:59 23:59 23:59 23:59 Intake Total 500 / 740 2220 / 2220 Output Total 300 / 300 200 / 200 Balance 200 / 440 2019 Weight 47.174 kg 49.555 kg Constitutional Constitutional: no acute distress, thin and chronically ill appearing *Routine HEENT Exam Head: Present normocephalic Eye: Present EOMI and PERRL ENT: Present mucous membranes moist *Routine Neck Exam Neck: Present supple; Absent lymphadenopathy *Routine Respiratory Exam Respiratory: Present prolonged expiratory phase, rhonchi and wheezes; Absent respiratory distress or crackles *Routine Cardiovascular Exam Cardiovascular: Present RRR *Routine Abdominal Exam Abdominal: Present soft and normoactive bowel sounds; Absent tenderness *Routine Rectal Exam Patient deferred: visual exam *Routine Exam Patient deferred: external exam *Routine Extremities Exam Extremities: Absent cyanosis, clubbing or edema Comments: Scab right anterior roberts approximately the size of a silver dollar. Hyperkeratotic lesion 1 cm in diameter dorsum of right hand *Routine Skin Exam Skin: Present warm; Absent rash *Routine Neurological Exam Neurological: Present alert and moving all extremities; Absent altered mental status Comments: Back to baseline mentation per daughter at bedside. Knows who she is, answers questions appropriately. Results Data Completed and Pending Labs on day of discharge: Labs from last 24 hours 11/13/24 11/12/24 11/12/24 07:04 20:05 15:57 WBC 6.8 RBC 4.45 Hgb 12.9 Hct 39.8 MCV 89.4 MCH 29.0 MCHC 32.4 RDW 13.0 Plt Count 205 MPV 9.1 Neut % (Auto) 59.2 Lymph % (Auto) 32.3 [place] % (Auto) 7.4 Eos % (Auto) 0.9 Baso % (Auto) 0.1 Neut # (Auto) 4.0 Lymph # (Auto) 2.2 [place] # (Auto) 0.5 Eos # (Auto) 0.1 Baso # (Auto) 0.0 Sodium 133 L Potassium 3.7 Chloride 95 L Carbon Dioxide 31 H Anion Gap 10.7 BUN 13 D Creatinine 0.70 D Estimated Creat Clear 36 Estimated GFR 81 Est GFR ( Amer) 98 D Glucose 90 Calcium 9.2 Magnesium 1.7 Total Bilirubin 0.5 AST 34 ALT 17 Alkaline Phosphatase 56 Lactate Dehydrogenase 226 L Total Protein 6.4 Albumin 3.8 Globulin 2.6 Albumin/Globulin Ratio 1.5 Lipase 839 H Chlamy pneumoniae PCR Not detected Adenovirus (PCR) Not detected B. pertussis DNA (PCR) Not detected Coronavirus OC43 (PCR) Not detected Coronavirus HKU1 (PCR) Not detected Coronavirus 229E (PCR) Not detected SARS-CoV-2 (PCR) Not detected Coronavirus NL63 (PCR) Not detected Human Metapneumovir PCR Not detected Influenza A (H1) PCR Not detected Influ A (H1N1/09) PCR Not detected Influenza A (H3) PCR Not detected Influenza Type A (PCR) Not detected Influenza Type B (PCR) Not detected M. pneumoniae (PCR) Not detected Parainfluenza 1 (PCR) Not detected Parainfluenza 2 (PCR) Not detected Parainfluenza 3 (PCR) Not detected Parainfluenza 4 (PCR) Not detected RSV (PCR) Not detected Entero/Rhino (PCR) Detected A DS: Diagnosis Discharge Diagnosis (1) Acute encephalopathy: Status: Acute Code(s): G93.40 - Encephalopathy, unspecified (2) Acute pancreatitis: Status: Acute Code(s): K85.90 - Acute pancreatitis without necrosis or infection, unspecified (3) Hypertension: Status: Chronic Code(s): I10 - Essential (primary) hypertension Qualifiers: Hypertension type: primary hypertension Qualified Code(s): I10 - Essential (primary) hypertension (4) Crohn's disease: Status: Chronic Code(s): K50.90 - Crohn's disease, unspecified, without complications Qualifiers: Digestive disease complication type: without complication Gastrointestinal tract location: unspecified location Qualified Code(s): K50.90 - Crohn's disease, unspecified, without complications (5) Dementia: Status: Acute Code(s): F03.90 - Unspecified dementia, unspecified severity, without behavioral disturbance, psychotic disturbance, mood disturbance, and anxiety Qualifiers: Dementia behavioral or psychological symptom: without behavioral, psychotic, or mood disturbance or anxiety Dementia severity: moderate Dementia type: vascular dementia Qualified Code(s): F01.B0 - Vascular dementia, moderate, without behavioral disturbance, psychotic disturbance, mood disturbance, and anxiety (6) COPD with exacerbation: Status: Acute Code(s): J44.1 - Chronic obstructive pulmonary disease with (acute) exacerbation Meds Home Medications and Allergies Home Medications ?Medication ?Instructions ?Recorded ?Confirmed ?Type budesonide 3 mg 3 mg PO HS 01/21/18 11/13/24 History capsule,delayed,extended release calcium ER 600 mg (as carb,cit)-D3 1 ea PO DAILY 01/21/18 11/12/24 History 12.5 mcg (500 unit) tablet, ext.rel (Citracal-D3 Slow Release) cholecalciferol (vitamin D3) 25 1,000 unit PO BID 01/21/18 11/12/24 History mcg (1,000 unit) capsule (Vitamin D3) pravastatin 80 mg tablet 80 mg PO DAILY 01/21/18 11/12/24 History potassium chloride 20 mEq 20 meq PO DAILY #30 tabs 01/24/18 11/12/24 Rx tablet,extended release lisinopril 40 mg tablet 40 mg PO DAILY 11/12/24 11/12/24 History multivitamin 1 tab PO DAILY 11/12/24 11/12/24 History atenolol 50 mg-chlorthalidone 25 0.5 tab PO DAILY 11/13/24 11/13/24 History mg tablet doxycycline hyclate 100 mg capsule 100 mg PO BID 5 days #10 caps 11/13/24 Rx fluticasone fur. 100 mcg-umeclid 1 inh inhalation DAILY 30 days #60 11/13/24 Rx 62.5 mcg-vilant 25 mcg ea inhalat.powder (Trelegy Ellipta) ipratropium 20 mcg-albuterol 100 2 puff inhalation Q4HP PRN 11/13/24 Rx mcg/actuation mist for inhalation Shortness Of Breath #4 grams (Combivent Respimat) nicotine 21 mg/24 hr daily 21 mg transdermal DAILY 28 days 11/13/24 Rx transdermal patch #28 ea New Prescriptions to Start Prescriptions: doxycycline hyclate Shabbir Herrera [id number] [Trelegy Ellipta] Shabbir Herrera ipratropium-albuterol [Combivent Respimat] Shabbir Herrera nicotine Shabbir Herrera Allergies Allergy/AdvReac Type Severity Reaction Status Date / Time No Known Allergies Allergy Verified 01/21/18 18:13 Discharge Plan Disposition Patient Disposition: Home, Self-Care Condition: Fair Follow up Plan Follow up with: Monica Delgado [Primary Care Provider, Medical] - 1 week Referral Note: Call on Thursday to make an appointment. Prescriptions/Medication Reconciliation: New Combivent Respimat 20-100 mcg/actuation Mist 2 puff inhalation Q4HP PRN (Reason: Shortness Of Breath) Qty: 4 0RF Trelegy Ellipta 100-62.5-25 mcg Blister With Device 1 inh inhalation DAILY 30 Days Qty: 60 0RF nicotine 21 mg/24 hr Patch 24 Hour 21 mg transdermal DAILY 28 Days Qty: 28 0RF doxycycline hyclate 100 mg capsule 100 mg PO BID 5 Days Qty: 10 0RF Continued multivitamin Tablet 1 tab PO DAILY lisinopril 40 mg tablet 40 mg PO DAILY Patient Comments: TAKE 1 TABLET BY MOUTH EVERY DAY IN THE EVENING FOR 90 DAYS atenolol-chlorthalidone 50-25 mg tablet 0.5 tab PO DAILY Patient Comments: TAKE 1/2 TABLET BY MOUTH EVERY MORNING pravastatin 80 MG tablet 80 mg PO DAILY budesonide 3 MG capsule,delayed,extend.release 3 mg PO HS cholecalciferol (vitamin D3) [Vitamin D3] 1,000 UNIT capsule 1,000 unit PO BID calcium carb, citrate-vit D3 [Citracal-D3 Slow Release] 1 EACH tablet extended release 1 ea PO DAILY potassium chloride 20 MEQ tablet extended release 20 meq PO DAILY Qty: 30 0RF Discontinued memantine 7 mg capsule,sprinkle,ER 24hr 7 mg PO DAILY Patient Comments: TAKE 1 CAPSULE BY MOUTH EVERY DAY Problem Reconciliation Problems Reviewed?: Yes Patient Discharge Instructions ACTIVITY: Continue current activity DIET: continue same diet Patient Instructions: DI for Pancreatitis, DI for High Blood Pressure Print Language: Telugu Providers Primary Care Provider: Monica Delgado Admit Provider: Shabbir Herrera Attending Provider: Shabbir Herrera
--- NOTE | 2024-11-14 14:23 | SW/DCPLANNER ---
Addendum entered by Chayito Bender RN 11/14/24 14:36: Spoke with patient's daughter. She is getting samples currently. Patient follows up with PCP on and will discuss alternative affordable medications at that time. Original Note: Spoke with patient's daughter on the phone. Patient's daughter stated that her mom is sleeping alot. Patient's daughter stated that she is aware of her upcoming appointment. Patient's daughter stated that she was able to get some of her moms medicine picked up except for her Trelegy and Combivent due to the morin after insurance was ran. One was 129.97 and the other is 193.39. Patient's daughter stated that the pharmacy has samples till they can get something done. Patient's daughter stated that she has no concerns or questions at this time. [place]
== END 2024-11-13 16:20 | disposition home or self-care (01) ==
LOC: ER 18:02 → 2ND 18:08
PROVIDERS: Admitting Provider Internal Medicine Adolescent Medicine; Emergency Provider Student in an Organized Health Care Education/Training Program; PCP Family Medicine; Visit Provider Internal Medicine Adolescent Medicine
DX: G92.9 Unspecified toxic encephalopathy (principal); K85.90 Acute pancreatitis without necrosis or infection, unspecified; I10 Essential (primary) hypertension; F01.B0 Vascular dementia, moderate, without behavioral disturbance, psychotic disturbance, mood disturbance, and anxiety; J44.1 Chronic obstructive pulmonary disease with (acute) exacerbation; K51.90 Ulcerative colitis, unspecified, without complications; R91.8 Other nonspecific abnormal finding of lung field; F17.210 Nicotine dependence, cigarettes, uncomplicated; E78.5 Hyperlipidemia, unspecified; R00.0 Tachycardia, unspecified; I25.10 Atherosclerotic heart disease of native coronary artery without angina pectoris; Z79.899 Other long term (current) drug therapy
CPT/HCPCS: 0223U; 36415; 70450; 71275; 74177; 80053; 81001; 83605; 83615; 83690; 83735; 84443; 84484; 85025; 86803; 87389; 93005; 94640; 96361; 96372; 96374; 99285; G0378; J1650; J1885; J7120; Q9967